=== PATIENT | female | born 1965 | race Caucasian/White ===

== ENCOUNTER 2024-12-26 12:45 | Inpatient (IN) | payer MEDICAID ==
[~2024-12-26] VITALS: Ht 160 cm; Wt 84.7 kg
[~2024-12-26 12:45] MED LIST: APIX5TAB3 PO; FEXO-404 PO; FLUO-167 PO; LEVO175T7 PO; LOSA-415 PO; MECL-302 PO; MIRT-87 PO; PANT40TA54 PO; POTA-206 PO
[2024-12-26 16:29] VITALS: BP 174/78; PULSE 93; RESP 18; TEMP 98; O2SAT 99
[2024-12-26] MEDS ORDERED: loperamide 2mg capsule PO PRN (17:10)
[2024-12-26] MEDS ORDERED: mag hydrox/Alum hydrox/simeth 30ml oral suspension PO PRN (17:20)
[2024-12-26 19:00] VITALS: RESP 20; O2SAT 98
[2024-12-26 20:00] VITALS: BP 140/71; PULSE 83; RESP 20; TEMP 97.8; O2SAT 98
[2024-12-26] MEDS ORDERED: MECL-302 PO (21:14)
[2024-12-26] MEDS ORDERED: PANT-47 PO (21:14)
[2024-12-26] MEDS ORDERED: FLUO-167 PO (21:14)
[2024-12-26] MEDS ORDERED: MIRT-142 PO (21:14)
[2024-12-26] MEDS ORDERED: APIX5TAB3 PO (21:14)
[2024-12-27 07:30] VITALS: BP 128/81; PULSE 97; RESP 16; TEMP 98.6; O2SAT 97
[2024-12-27] MEDS: pantoprazole 40mg Tablet.DR PO SCH (07:31)
[2024-12-27] MEDS: levoTHYROXINE 175mcg tablet PO SCH (07:34)
[2024-12-27 08:11] LABS: CHOL/HDL RATIO 4.5 (0.00-4.99); LDL CHOLESTEROL 111 MG/DL (50-100)
--- NOTE | 2024-12-27 08:15 | ELECTROCARDIOGRAPH REPORT ---
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 BÁRBARA Saavedra Measurements Intervals Sprague Rate: 95 P: 35 WY: 114 QRS: 66 QRSD: 92 T: 75 QT: 381 QTc: 479 Interpretive Statements Sinus rhythm Borderline short W[place] interval Nonspecific T abnormalities, lateral leads Electronically Signed On 12-27-2024 17:44:[address] BÁRBARA Saavedra Please click the below link to view image of tracing.
--- NOTE | 2024-12-27 12:04 | HISTORY AND PHYSICAL ---
History of Present Illness Primary Medical Doctor: Dr. Quintero History of Present Illness Admission date: 02/26/24 Length of stay: 1 day Status: VOL HPI: Per consultation by this provider on 12/17/24: Admitted to psychiatric unit on 12/20/24 after being hospitalized for evaluation of vertigo and hypokalemia. Full medical work up completed to rule out BPPV, posterior cerebral circulation stroke, Meniere's disease, vestibular schwannoma. for Consulted requested in the context that's psychiatric symptoms, including depression is a contributing factor to inability to eat failure to thrive, 40 pound weight loss in the past few months. Her brother reported changing behavior behaviors, including more irritable, compared to normal in the past few months. Per Brother: Brother thinks she is having nervous breakdown to "protect herself from what's going on". Per brother her thoughts have been scattered, and she is distracted easily, brother reports she has been very preoccupied with worries. Most days her brother would call and talk to her since end of August- september she wouldn't hve eaten at all during the day. Per brother she has no history of confusion, arguing, anxiety. Reports she will purposefully stay awake and get about 4 hours a day, because she likes to stay up late. States this has been her pattern "for as long as I can remember". Her baseline personality is trouble completing tasks because she will obsess about, "everything will take a long time". She has dread, guilt, anxiety, will be emotionally stuck- about not being able to tithe with the loss of her job. Her cousin came yesterday 12/16/24 and talked to her for over an hour about this issue. Brother states she was scared to drive to the grocery store, afraid to drive. Brother states she spent over an hour cleaning a taylor. Per patient: Patient shares she became more upset when her hospitalist was asking her questions, developed left sided rib and chest pain, she shares that her decision making is "I don't know". She relates this changed when she started "falling backwards" at her home, and after that she reflects she was having trouble with her balance, she had to be careful about bending over because it would "do something to my head". Notices the most issues when she was lay down flat in the bed- states it would feel like her head was moving inside. States she was at her current work for almost 19 years and then she was fired on September 18- in the context of "poor job performance" although when she was let go the community association manager told her she had a bad review. Then her mother was hospitalized (is age 83), states this was very stressful she has been a main caregiver for her mother. She has lived with her parents her whole life. Her shift in her ability to function occurred after her mother was hospitalized. She states she ahs been worried about "Everything" "no job, filling out une mployment paperwork". Appetite decreased since she lost her job and her mother was hospitalized. She states she thinks she was ok when she was able to tithe- (states she is very mormonism, raised in the zoroastrianism), states she became financially strained with the loss of her job, her brother provided some financial support - because they cant afford property tax. She is upset because there was money and she didn't pay the tithe0 would she identifies as "sin" and being a thief. She states that "everything just fell apart all at once". Endorses she has lost confidence. Significant fear that if she didn't wake up she would be in [place]. Alert and Oriented X4, appropriate memory recall, attention intact States at home she would spend hours stating "I don't know what to do" unable to take action, and her mother would respond Admitted to psychiatric unit from 12/20- for functional neurologic disorder and somatic symptom disorder, transferred back to medical unit Psychiatric History: Age of initial treatment: no hx of mental health Outpatient: no hx Inpatient: no hx Historical Diagnoses (w/year): none Hx of suicide attempts: denies, denies hx of sucidie Hx of self-harm: denies Hx of violence: denies Legal hx: denies Historical Psych Medications: denies Substances use history: Utox positive for benzodiazepines (was administered valium in the emergency department) no hx of substance use Social history: Lost her job at [employer] at end of August and since has been feeling sad, has had a sudden decline in PO intake, including food and water. Brother is concerned that she has become mentally shut down. For the reports concerns for new behaviors including becoming argumentative, uncooperative and losing her decision-making capacity. Anglican, "I've been raised in zoroastrianism my whole life". Today on Assessment: Complaining about being independent but is completing tasks Psychiatric Medications: Fluoxetine 20 mg po qd Mirtazapine 15 mg po qhs Side Effects: Denies No evidence of TD, EPS AIMs: 0 Review of Psychiatric Symptoms: Mood: when asked how she is feeling she stated, "all of this here is scary" Suicide/self-harm: denies Sleep: when asked how she slept last night she replied, "I know I went to bed early and I am always afraid to lay down after I take a drink" poor sleep Appetite: poor - at 20% of her breakfast, is attempting to eat and drink three meals a day Energy: poor Anxiety: anxiety high Irritability: endorses Homicidal/Anger: denies Hallucinations/Paranoia: denies Trauma symptoms: denies Symptoms related to substance withdrawal: denies Mental Status Evaluation General Appearance: hospital scrubs, short florentino hair, glasses, malodorous Eye contact: intermittent Demeanor: childlike anxious Orientation: to person, place, time, situation Speech: stuttering, hesitant Psychomotor Activity: within normal range Abnormal Body Movements: none observed Mood: uneasy Affect: constricted Suicidality: denies suicidal ideation Homicidally: denies Thought content: consistent with social norms Thought process: circumstantial Thought perceptions: no perceptual disorder noted Memory: appears intact Attention: appear attentive Insight: fair Judgment: fair - Current Medical Problems: r/o encephalopathy Dizziness/Near syncope- etiology unclear MRI normal no evidence of acute intracranial abnormality stroke ruled out EEG results 12/16/23: excess beta in otherwise normal background- nonspecific finding, but maybe seen in the setting of benzodiazepine or barbituate use 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 Hypothyroidism- taking levothyroxine Trouble hearing bilaterally DVT- 12/23-12/26 (treated on medical floor- on elequis) Cardiac HX: hypertension, LD elevated TBI Hx: 1982 - reports there have been no long lasting effects Seizure Hx: denies CHRISTINA Hx: denies Diagnoses Adjustment disorder with mixed anxiety and depressed mood Panic attacks Functional Neurological Disorder acute (met criteria for less than 6 months) Somatic symptom disorder (provisional, met criteria for less than 6 months) r/o dependent personality disorder Assessment: Transferring back from medical floor after treatment for DVTConstance Toney is a 59 year old female who presents for further evaluation and treatment of for adjustment disorder with mixed anxiety and depressed mood, panic attacks, functional neurologic disorder acute, somatic symptom disorder (provisional). She presents in state of mental decompensation in the context of psychosocial stressors including losing her job, her mother becoming hospitalized, financial stress, conflict with being able to enact her mormonism beliefs. She is no longer able to care for herself, including feed herself has lost up to 40 pounds since onset of stressors end of August/beginning of September 2024. She has no psychiatric history prior to August 2024. Symptoms appear to directly correlate in their onset with psychosocial stressors. Anxiety has become significantly heightened, which appears to be the hardwick contributing factor to her inability to function at her normal baseline. Her sleep has been chronically poor but has since worsened. She was admitted to the hospital medical for dizziness/concerns for syncope on. There appears to be contributing organic medical causes at this time, the degree of which these are contributing to her inability to care for herself and psychiatric symptoms are unclear. She continues to meet criteria for functional neurologic disorder as well as provisionally for somatic symptom disorder as the majority of her thought content, anxiety is directed towards the distress around her somatic symptoms. Continues to be acutely anxious, overwhelmed easily, rigid thought process overfocused on somatic concerns, will repeat the same concerns Safety risk: low risk of imminent self-harm, low risk of externalized violent behaviors Treatment Plan: Will continue mirtazapine to address, anxiety, depressive symptoms, sleep, and stimulate appetite. Will start aripiprazole to further address the severity of her rigid thought process, mood, anxiety. Will start lorazepam to manage short term acute anxiety which inhibits her capacity to complete basic self care and decision making. Safety risk: low risk of imminent self-harm, low risk of externalized violent behaviors Treatment Plan: Start lorazepam 0.5 mg po TID Start aripiprazole 5 mg po qd Continue mirtazapine 30 mg po qhs for anxiety/sleep/depression and stimulate appetite. Continue Q15 min checks Continue Groups/Milieu Engagement Spent approximately 60 minutes reviewing records and test results, assessing and treatment planning, completing care coordination and documenting the encounter. Discussed risks, including possible adverse effects, and benefits of treatment recommendations including no treatment. Voice recognition software may have been used to dictate this note. There may be errors due to use of such software. Reporting of serious errors is appreciated. Allergies: Coded Allergies: amoxicillin (Verified Allergy, Unknown, 12/13/24) clavulanic acid (Verified Allergy, Unknown, 12/13/24) erythromycin base (Verified Allergy, Unknown, 12/13/24) Past Surgical History Past Surgical History: no surgical history Past Family History Patient History: CVA FH: cardiovascular disease MOTHER FH: heart disease Maternal grandmother FH: hypertension MOTHER FH: mental illness FATHER, Paternal grandmother FH: stroke FATHER, Past Social History Drug Use: None Lives with: Spouse Lives In: Home Assessment/Plan Problems/Diagnosis: (1) Functional neurological symptom disorder with mixed symptoms CODING VISIT-PSYCHIATRY Date of Service: Dec 27, 2024 Billing Provider: RACQUEL PERRY DNP Psych Common Visit Codes: [id number] DIAG EVAL W/MED SRVCS RACQUEL PERRY DNP Dec 27, 2024 12:04
--- NOTE | 2024-12-27 14:14 | HISTORY AND PHYSICAL ---
History & Physical Providers to ~ History of Present Illness Reason for Admit\Complaint: Depression History of Present Illness 59 years old female admitted at [facility] on 12/20/2024 for major depression and anxiety and grave disability. Patient was placed in 1799. She was noted to have a swelling of her left leg and was found to have an occlusive DVT. Patient was transferred to the medical side, treated with IV heparin and switch to oral anticoagulants and transferred back to [facility] for ongoing treatment. Patient has no acute medical issues. Continues to have leg swelling. Denies having any shortness of breath. Denies having any recent fever chills nausea vomiting abdominal or chest pain. Allergies: Coded Allergies: amoxicillin (Verified Allergy, Unknown, 12/13/24) clavulanic acid (Verified Allergy, Unknown, 12/13/24) erythromycin base (Verified Allergy, Unknown, 12/13/24) Home Medications Home Medications Active Reported PROTONIX tablet (Pantoprazole Sodium) 40 Mg Tablet.dr 1 Tab PO DAILY Meclizine HCl 25 Mg Tablet 1 Tab PO Q8H PRN Mandi* (Fexofenadine HCl) 180 Mg Tablet 1 Tab PO DAILY Cozaar* (Losartan Potassium) 25 Mg Tablet 2 Tab PO DAILY Levothyroxine Sodium 175 Mcg Tablet 1 Tab PO DAILY Eliquis (Apixaban) 5 Mg Tablet 1 Tab PO Q12H Eliquis (Apixaban) 5 Mg Tablet 2 Tab PO Q12H Past Medical History Past Medical History Hypertension, hypothyroidism, hypokalemia, traumatic brain injury 44 years ago, GERD Past Surgical History Surgical History Comment Tonsillectomy, surgery for endometriosis, abdominal surgery Family History Family History: Family history was reviewed; no changes noted. Past Social History Social History Comment Does not smoke drink or do any drugs Health Maintenance Health Maintenance Unknown ROS ROS All other systems are reviewed and are negative except as mentioned in HPI Exam Vitals: Vital Signs Date Time Temp Pulse Resp B/P (MAP) Pulse Ox O2 Delivery O2 Flow Rate FiO2 12/27/24 07:31 97 12/27/24 07:30 16 97 Room Air 12/27/24 07:30 98.6 128/81 (97) General: Awake cooperative in no acute distress HEENT: Normocephalic atraumatic pupils round reactive to light and accommodation, extraocular movements intact, sclera anicteric, conjunctiva pinkish, moist oral mucosa, no rash or ulcers. Neck: Supple, no JVD, trachea midline, no lymphadenopathy. Chest: Clear to auscultation, no wheezes crackles or rhonchi. Cardiovascular: Regular rate rhythm, no murmur gallop or rub. Abdomen: Soft nontender, no organomegaly. Extremities: Swelling of the left leg extending to the left thigh noted no cyanosis or clubbing Central Nervous System: Nonfocal. Moves all four extremities. Musculoskeletal: No joint swelling or deformities Skin: No rash or ulcers Additional Plan 59 years old female with a history of major depression, transferred back to [facility] after being treated for left leg occlusive DVT # left leg occlusive DVT: Continue Eliquis #hypothyroidism: Continue levothyroxine #hypertension: Continue Cozaar #GERD: Continue pantoprazole #depression: Continue treat per psych recommendations. I will sign off. Hospitalist team will continue to follow the patient as per policy/protocol. Please contact the hospitalist team for any change in patient's medical condition. Date of Service: Dec 27, 2024 Billing Provider: CAROLINE BARGER MD Common Visit Codes: [id number] INP/OBS CARE (MOD) CAROLINE BARGER MD Dec 27, 2024 14:14
[2024-12-27 19:00] VITALS: RESP 18; O2SAT 99
[2024-12-27 20:00] VITALS: BP 138/60; PULSE 81; RESP 18; TEMP 98.6; O2SAT 99
[2024-12-27 21:40] VITALS: BP 125/68; PULSE 85; RESP 16; TEMP 99.5; O2SAT 94
[2024-12-28 07:30] VITALS: BP 134/67; PULSE 88; RESP 16; TEMP 98; O2SAT 96
--- NOTE | 2024-12-28 16:46 | PROGRESS NOTE ---
Progress Note Dictate Providers to CC ~ Progress Note: Admission date: 02/26/24 Length of stay: 2 days Status: VOL HPI: Per consultation by this provider on 12/17/24: Admitted to psychiatric unit on 12/20/24 after being hospitalized for evaluation of vertigo and hypokalemia. Full medical work up completed to rule out BPPV, p osterior cerebral circulation stroke, Meniere's disease, vestibular schwannoma. for Consulted requested in the context that's psychiatric symptoms, including depression is a contributing factor to inability to eat failure to thrive, 40 pound weight loss in the past few months. Her brother reported changing behavior behaviors, including more irritable, compared to normal in the past few months. Per Brother: Brother thinks she is having nervous breakdown to "protect herself from what's going on". Per brother her thoughts have been scattered, and she is distracted easily, brother reports she has been very preoccupied with worries. Most days her brother would call and talk to her since end of August- september she wouldn't hve eaten at all during the day. Per brother she has no history of confusion, arguing, anxiety. Reports she will purposefully stay awake and get about 4 hours a day, because she likes to stay up late. States this has been her pattern "for as long as I can remember". Her baseline personality is trouble completing tasks because she will obsess about, "everything will take a long time". She has dread, guilt, anxiety, will be emotionally stuck- about not being able to tithe with the loss of her job. Her cousin came yesterday 12/16/24 and talked to her for over an hour about this issue. Brother states she was scared to drive to the grocery store, afraid to drive. Brother states she spent over an hour cleaning a taylor. Per patient: Patient shares she became more upset when her hospitalist was asking her q uestions, developed left sided rib and chest pain, she shares that her decision making is "I don't know". She relates this changed when she started "falling backwards" at her home, and after that she reflects she was having trouble with her balance, she had to be careful about bending over because it would "do something to my head". Notices the most issues when she was lay down flat in the bed- states it would feel like her head was moving inside. States she was at her current work for almost 19 years and then she was fired on September 18- in the context of "poor job performance" although when she was let go the security services manager told her she had a bad review. Then her mother was hospitalized (is age 83), states this was very stressful she has been a main caregiver for her mother. She has lived with her parents her whole life. Her shift in her ability to function occurred after her mother was hospitalized. She states she ahs been worried about "Everything" "no job, filling out unemployment paperwork". Appetite decreased since she lost her job and her mother was hospitalized. She states she thinks she was ok when she was able to tithe- (states she is very jew, raised in the taoism), states she became financially strained with the loss of her job, her brother provided some financial support - because they cant afford property tax. She is upset because there was money and she didn't pay the tithe0 would she identifies as "sin" and being a thief. She states that "everything just fell apart all at once". Endorses she has lost confidence. Significant fear that if she didn't wake up she would be in Hell. Alert and Oriented X4, appropriate memory recall, attention intact States at home she would spend hours stating "I don't know what to do" unable to take action, and her mother would respond Admitted to psychiatric unit from 12/20- for functional neurologic disorder and somatic symptom disorder, transferred back to medical unit Psychiatric History: Age of initial treatment: no hx of mental health Outpatient: no hx Inpatient: no hx Historical Diagnoses (w/year): none Hx of suicide attempts: denies, denies hx of sucidie Hx of self-harm: denies Hx of violence: denies Legal hx: denies Historical Psych Medications: denies Substances use history: Utox positive for benzodiazepines (was administered valium in the emergency department) no hx of substance use Social history: Lost her job at [employer] at end of August and since has been feeling sad, has had a sudden decline in PO intake, including food and water. Brother is concerned that she has become mentally shut down. For the reports concerns for new behaviors including becoming argumentative, uncooperative and losing her decision-making capacity. Yazidi, "I've been raised in taoism my whole life". Today on Assessment: Concerns for being cold, disrupted her sleep. States she wasn't thinking about her pain. Per nursing staff no concerns of sedation (poor sleep r/t roommate's psychotic symptoms). Psychiatric Medications: Aripiprazole Mirtazapine Lorazepam Side Effects: - one episode of feeling light headed and dizzy, No evidence of TD, EPS AIMs: 0 Review of Psychiatric Symptoms: Mood: when asked how she is feeling she stated, "all of this here is scary" Suicide/self-harm: denies Sleep: when asked how she slept last night she replied, "I know I went to bed early and I am always afraid to lay down after I take a drink" poor sleep Appetite: poor - at 20% of her breakfast, drank carton of milk, endorses some appetite. Concerned about her heart burn. Energy: fatigued today, spending a lot of time sleep Anxiety: "I was closing my eyes I don't think I was worrying" Irritability: endorses Homicidal/Anger: denies Hallucinations/Paranoia: denies Trauma symptoms: denies Symptoms related to substance withdrawal: denies Mental Status Evaluation General Appearance: hospital scrubs, short florentino hair, glasses, malodorous Eye contact: intermittent Demeanor: childlike anxious Orientation: to person, place, time, situation Speech: stuttering, hesitant Psychomotor Activity: within normal range Abnormal Body Movements: none observed Mood: uneasy Affect: constricted Suicidality: denies suicidal ideation Homicidally: denies Thought content: consistent with social norms Thought process: circumstantial Thought perceptions: no perceptual disorder noted Memory: appears intact Attention: appear attentive Insight: fair Judgment: fair - Current Medical Problems: r/o encephalopathy Dizziness/Near syncope- etiology unclear MRI normal no evidence of acute intracranial abnormality stroke ruled out EEG results 12/16/23: excess beta in otherwise normal background- nonspecific finding, but maybe seen in the setting of benzodiazepine or barbituate use 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 Hypothyroidism- taking levothyroxine Trouble hearing bilaterally DVT- 12/23-12/26 (treated on medical floor- on elequis) Cardiac HX: hypertension, LD elevated TBI Hx: 1980 - reports there have been no long lasting effects Seizure Hx: denies CHRISTINA Hx: denies Diagnoses Adjustment disorder with mixed anxiety and depressed mood Panic attacks Functional Neurological Disorder acute (met criteria for less than 6 months) Somatic symptom disorder (provisional, met criteria for less than 6 months) r/o dependent personality disorder Assessment: Transferred back from medical floor after treatment for DVTConstance Toney is a 59 year old female who presents for further evaluation and treatment of for adjustment disorder with mixed anxiety and depressed mood, panic attacks, functional neurologic disorder acute, somatic symptom disorder (provisional). She presents in state of mental decompensation in the context of psychosocial stressors including losing her job, her mother becoming hospitalized, financial stress, conflict with being able to enact her jew beliefs. She is no longer able to care for herself, including feed herself has lost up to 40 pounds since onset of stressors end of August/beginning of September 2024. She has no psychiatric history prior to August 2024. Symptoms appear to directly correlate in their onset with psychosocial stressors. Anxiety has become significantly heightened, which appears to be the hardwick contributing factor to her inability to function at her normal baseline. Her sleep has been chronically poor but has since worsened. She was admitted to the hospital medical for dizziness/concerns for syncope on. There appears to be contributing organic medical causes at this time, the degree of which these are contributing to her inability to care for herself and psychiatric symptoms are unclear. She continues to meet criteria for functional neurologic disorder as well as provisionally for somatic symptom disorder as the majority of her thought content, anxiety is directed towards the distress around her somatic symptoms. 12/28/24: Less anxiety, rigid thought process less focused on somatic concerns, mood remains depressed Safety risk: low risk of imminent self-harm, low risk of externalized violent behaviors Treatment Plan: Will continue mirtazapine to address, anxiety, depressive symptoms, sleep, and stimulate appetite. Will continue aripiprazole to further address the severity of her rigid thought process, mood, anxiety. Will continue lorazepam to manage short term acute anxiety which inhibits her capacity to complete basic self care and decision making. Safety risk: low risk of imminent self-harm, low risk of externalized violent behaviors Treatment Plan: Continue lorazepam 0.5 mg po TID Continue aripiprazole 5 mg po qd Continue mirtazapine 30 mg po qhs for anxiety/sleep/depression and stimulate appetite. Continue Q15 min checks Continue Groups/Milieu Engagement Spent approximately 30 minutes reviewing records and test results, assessing and treatment planning, completing care coordination and documenting the encounter. Discussed risks, including possible adverse effects, and benefits of treatment recommendations including no treatment. Voice recognition software may have been used to dictate this note. There may be errors due to use of such software. Reporting of serious errors is appreciated. Antibiotic Ordered?: No Objective Vitals Vital Signs Date Time Temp Pulse Resp B/P (MAP) Pulse Ox O2 Delivery O2 Flow Rate FiO2 12/28/24 12:59 18 12/28/24 07:30 98.0 88 134/67 (89) 96 Room Air Problem\\Assessment\\Plan Problems/Diagnosis: (1) Functional neurological symptom disorder with mixed symptoms CODING VISIT-PSYCHIATRY Date of Service: Dec 28, 2024 Billing Provider: RACQUEL PERRY DNP Psych Common Visit Codes: [id number] INP/OBS CARE(Mod) RACQUEL PERRY DNP Dec 28, 2024 16:46
[2024-12-28 19:00] VITALS: RESP 18; O2SAT 98
[2024-12-28 20:00] VITALS: BP 131/70; PULSE 97; RESP 18; TEMP 97.9; O2SAT 98
[2024-12-29 07:30] VITALS: BP 163/63; PULSE 89; RESP 16; TEMP 98; O2SAT 94
--- NOTE | 2024-12-29 10:26 | PROGRESS NOTE ---
Daily Progress Note Providers to CC ~ Antibiotic Timeout Antibiotic Ordered?: No Subjective Patient has no new complaints, she is seen resting comfortably. Objective Vital Signs Date Time Temp Pulse Resp B/P (MAP) Pulse Ox O2 Delivery O2 Flow Rate FiO2 12/29/24 07:43 89 12/29/24 07:38 16 12/28/24 20:00 97.9 131/70 (90) 98 Room Air Gen. awake alert oriented asymptomatic HEENT: Normocephalic, atraumatic, extraocular movements are intact, sclera anicteric, conjunctiva pinkish, moist oral mucosa, no rash or ulcers. NECK: Supple, no JVD, trachea midline. CHEST: Clear to auscultation, no wheezes crackles or rhonchi. HEART: Regular rate rhythm, no murmur gallop or rub. ABDOMEN: Soft, nontender, no organomegaly. EXTREMITIES: No cyanosis or clubbing, edema of left lower extremity/calf noted. Improvement edema of the left thigh. Bilateral ankle/foot edema noted. NEURO EXAM: Grossly nonfocal. MUSCULOSKELETAL : No joint swelling or deformities. SKIN: No rash or ulcers noted. Other Results Medications reviewed Problem\Assessment\Plan 59 years old female admitted at [facility] for anxiety and depression as well as panic attacks. # anxiety/depression/panic attacks: Continue treat per psych recommendations. # DVT left leg: Continue Eliquis #hyperlipidemia: Continue atorvastatin # hypertension: Continue losartan #hypothyroidism: Continue levothyroxine # GERD: Continue PPI I will sign off. Please contact the hospitalist team for any change in patient 's medical condition. Hospitalist team will continue to follow the patient as per policy/protocol. Date of Service: Dec 29, 2024 Billing Provider: CAROLINE BARGER MD Common Visit Codes: [id number] INP/OBS CARE(MOD) CAROLINE BARGER MD Dec 29, 2024 10:26
[2024-12-29] MEDS: magnesium hydroxide 30ml (MOM) UD suspension PO PRN (14:44)
--- NOTE | 2024-12-29 14:57 | PROGRESS NOTE ---
Progress Note Dictate Providers to CC ~ Progress Note: Admission date: 02/26/24 Length of stay: 3 days Status: VOL HPI: Per consultation by this provider on 12/17/24: Admitted to psychiatric unit on 12/20/24 after being hospitalized for evaluation of vertigo and hypokalemia. Full medical work up completed to rule out BPPV, p osterior cerebral circulation stroke, Meniere's disease, vestibular schwannoma. for Consulted requested in the context that's psychiatric symptoms, including depression is a contributing factor to inability to eat failure to thrive, 40 pound weight loss in the past few months. Her brother reported changing behavior behaviors, including more irritable, compared to normal in the past few months. Per Brother: Brother thinks she is having nervous breakdown to "protect herself from what's going on". Per brother her thoughts have been scattered, and she is distracted easily, brother reports she has been very preoccupied with worries. Most days her brother would call and talk to her since end of August- september she wouldn't hve eaten at all during the day. Per brother she has no history of confusion, arguing, anxiety. Reports she will purposefully stay awake and get about 4 hours a day, because she likes to stay up late. States this has been her pattern "for as long as I can remember". Her baseline personality is trouble completing tasks because she will obsess about, "everything will take a long time". She has dread, guilt, anxiety, will be emotionally stuck- about not being able to tithe with the loss of her job. Her cousin came yesterday 12/16/24 and talked to her for over an hour about this issue. Brother states she was scared to drive to the grocery store, afraid to drive. Brother states she spent over an hour cleaning a taylor. Per patient: Patient shares she became more upset when her hospitalist was asking her q uestions, developed left sided rib and chest pain, she shares that her decision making is "I don't know". She relates this changed when she started "falling backwards" at her home, and after that she reflects she was having trouble with her balance, she had to be careful about bending over because it would "do something to my head". Notices the most issues when she was lay down flat in the bed- states it would feel like her head was moving inside. States she was at her current work for almost 19 years and then she was fired on September 18- in the context of "poor job performance" although when she was let go the desktop manager told her she had a bad review. Then her mother was hospitalized (is age 83), states this was very stressful she has been a main caregiver for her mother. She has lived with her parents her whole life. Her shift in her ability to function occurred after her mother was hospitalized. She states she ahs been worried about "Everything" "no job, filling out unemployment paperwork". Appetite decreased since she lost her job and her mother was hospitalized. She states she thinks she was ok when she was able to tithe- (states she is very taoism, raised in the holiness), states she became financially strained with the loss of her job, her brother provided some financial support - because they cant afford property tax. She is upset because there was money and she didn't pay the tithe0 would she identifies as "sin" and being a thief. She states that "everything just fell apart all at once". Endorses she has lost confidence. Significant fear that if she didn't wake up she would be in Hell. Alert and Oriented X4, appropriate memory recall, attention intact States at home she would spend hours stating "I don't know what to do" unable to take action, and her mother would respond Admitted to psychiatric unit from 12/20- for functional neurologic disorder and somatic symptom disorder, transferred back to medical unit Psychiatric History: Age of initial treatment: no hx of mental health Outpatient: no hx Inpatient: no hx Historical Diagnoses (w/year): none Hx of suicide attempts: denies, denies hx of sucidie Hx of self-harm: denies Hx of violence: denies Legal hx: denies Historical Psych Medications: denies Substances use history: Utox positive for benzodiazepines (was administered valium in the emergency department) no hx of substance use Social history: Lost her job at [employer] at end of August and since has been feeling sad, has had a sudden decline in PO intake, including food and water. Brother is concerned that she has become mentally shut down. For the reports concerns for new behaviors including becoming argumentative, uncooperative and losing her decision-making capacity. Hinduism, "I've been raised in holiness my whole life". Today on Assessment: Concerns for incontinence, was able to shower, is fearful about being alone in the bank operations officer. Biggest concerns: going to the bathroom, trouble walking- fear of falling, financial fear Is worried that the medication will make her more forgetful. Psychiatric Medications: Aripiprazole Mirtazapine Lorazepam Side Effects: denies No evidence of TD, EPS AIMs: 0 Review of Psychiatric Symptoms: Mood: anxious, endorses helplessness. Suicide/self-harm: denies Sleep: states she slept better than previous nights, woke up feeling really anxious- concerned about going to the bathroom- Appetite: poor - at 20% "a little bit of egg, a little nibble of cantaloupe" "the food smells and all of the meat is dry" Energy: "I'm tired, everything is so hard" Anxiety: "I was closing my eyes I don't think I was worrying" Irritability: endorses Homicidal/Anger: denies Hallucinations/Paranoia: denies Trauma symptoms: denies Symptoms related to substance withdrawal: denies Mental Status Evaluation General Appearance: hospital scrubs, short florentino hair, glasses, malodorous Eye contact: intermittent Demeanor: childlike anxious Orientation: to person, place, time, situation Speech: stuttering, hesitant Psychomotor Activity: within normal range Abnormal Body Movements: none observed Mood: uneasy Affect: constricted Suicidality: denies suicidal ideation Homicidally: denies Thought content: consistent with social norms Thought process: circumstantial Thought perceptions: no perceptual disorder noted Memory: appears intact Attention: appear attentive Insight: fair Judgment: fair - Current Medical Problems: r/o encephalopathy Dizziness/Near syncope- etiology unclear MRI normal no evidence of acute intracranial abnormality stroke ruled out EEG results 12/16/23: excess beta in otherwise normal background- nonspecific finding, but maybe seen in the setting of benzodiazepine or barbituate use 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 Hypothyroidism- taking levothyroxine Trouble hearing bilaterally DVT- 12/23-12/26 (treated on medical floor- on elequis) Cardiac HX: hypertension, LD elevated TBI Hx: 1979 - reports there have been no long lasting effects Seizure Hx: denies CHRISTINA Hx: denies Diagnoses Adjustment disorder with mixed anxiety and depressed mood Panic attacks Functional Neurological Disorder acute (met criteria for less than 6 months) Somatic symptom disorder (provisional, met criteria for less than 6 months) r/o dependent personality disorder Assessment: Transferred back from medical floor after treatment for DVTConstance Toney is a 59 year old female who presents for further evaluation and treatment of for adjustment disorder with mixed anxiety and depressed mood, panic attacks, functional neurologic disorder acute, somatic symptom disorder (provisional). She presents in state of mental decompensation in the context of psychosocial stressors including losing her job, her mother becoming hospitalized, financial stress, conflict with being able to enact her taoism beliefs. She is no longer able to care for herself, including feed herself has lost up to 40 pounds since onset of stressors end of August/beginning of September 2024. She has no psychiatric history prior to August 2024. Symptoms appear to directly correlate in their onset with psychosocial stressors. Anxiety has become significantly heightened, which appears to be the hardwick contributing factor to her inability to function at her normal baseline. Her sleep has been chronically poor but has since worsened. She was admitted to [facility] for dizziness/concerns for syncope on. There appears to be contributing organic medical causes at this time, the degree of which these are contributing to her inability to care for herself and psychiatric symptoms are unclear. She continues to meet criteria for functional neurologic disorder as well as provisionally for somatic symptom disorder as the majority of her thought content, anxiety is directed towards the distress around her somatic symptoms. 12/29/24: Less anxiety, rigid thought process still focused on basic somatic concerns, mood remains depressed Safety risk: low risk of imminent self-harm, low risk of externalized violent behaviors Treatment Plan: Will continue mirtazapine to address, anxiety, depressive symptoms, sleep, and stimulate appetite. Will continue aripiprazole to further address the severity of her rigid thought process, mood, anxiety. Will continue lorazepam to manage short term acute anxiety which inhibits her capacity to complete basic self care and decision making. Safety risk: low risk of imminent self-harm, low risk of externalized violent behaviors Treatment Plan: Continue lorazepam 0.5 mg po BID am and afternoon- (will discontinue HS dose) Continue aripiprazole 5 mg po qd Continue mirtazapine 30 mg po qhs for anxiety/sleep/depression and stimulate appetite. Continue Q15 min checks Continue Groups/Milieu Engagement Spent approximately 30 minutes reviewing records and test results, assessing and treatment planning, completing care coordination and documenting the encounter. Discussed risks, including possible adverse effects, and benefits of treatment recommendations including no treatment. Voice recognition software may have been used to dictate this note. There may be errors due to use of such software. Reporting of serious errors is appreciated. Antibiotic Ordered?: No Objective Vitals Vital Signs Date Time Temp Pulse Resp B/P (MAP) Pulse Ox O2 Delivery O2 Flow Rate FiO2 12/29/24 14:32 16 12/29/24 07:43 89 12/28/24 20:00 97.9 131/70 (90) 98 Room Air Problem\\Assessment\\Plan Problems/Diagnosis: (1) Functional neurological symptom disorder with mixed symptoms CODING VISIT-PSYCHIATRY Date of Service: Dec 29, 2024 Billing Provider: RACQUEL PERRY DNP Psych Common Visit Codes: [id number] INP/OBS CARE(Mod) RACQUEL PERRY DNP Dec 29, 2024 14:57
[2024-12-29 19:00] VITALS: RESP 16; O2SAT 97
[2024-12-29 20:00] VITALS: BP 123/78; PULSE 99; RESP 16; TEMP 97.8; O2SAT 97
[2024-12-30 07:00] VITALS: RESP 18; O2SAT 95
[2024-12-30 07:03] LABS: MEAN PLATELET VOLUME 7.9 FL (7.4-10.4); RED CELL DISTRIBUTION WIDTH 15.9 % (11.5-14.5)
[2024-12-30 07:45] LABS: CREATININE 0.74 MG/DL (0.40-0.90); TOTAL CARBON DIOXIDE 28.6 MMOL/L (24-32); eCRCL 66 ML/MIN; eGFR 80 ML/MIN
[2024-12-30 08:00] VITALS: BP 136/75; PULSE 97; RESP 18; TEMP 97.6; O2SAT 95
--- NOTE | 2024-12-30 15:25 | PROGRESS NOTE ---
Progress Note Dictate Providers to CC ~ Central Line/PICC still needed: N\\A Antibiotic Ordered?: N/A MRSA Education MRSA Education Provided to pt: N/A Objective Vitals Vital Signs Date Time Temp Pulse Resp B/P (MAP) Pulse Ox O2 Delivery O2 Flow Rate FiO2 12/30/24 14:55 16 12/30/24 08:00 97 12/30/24 08:00 97.6 136/75 (95) 95 Room Air Lab Results: 12/30/24 0643 12/30/24 0643 Psychiatrist's Progress Note Date of Service: Dec 30, 2024 Notes HPI: Per consultation by this provider on 12/17/24: Admitted to psychiatric unit on 12/20/24 after being hospitalized for evaluation of vertigo and hypokalemia. Full medical work up completed to rule out BPPV, posterior cerebral circulation stroke, Meniere's disease, vestibular schwannoma. for Consulted requested in the context that's psychiatric symptoms, including depression is a contributing factor to inability to eat failure to thrive, 40 pound weight loss in the past few months. Her brother reported changing behavior behaviors, including more irritable, compared to normal in the past few months. Per Brother: Brother thinks she is having nervous breakdown to "protect herself from what's going on". Per brother her thoughts have been scattered, and she is distracted easily, brother reports she has been very preoccupied with worries. Most days her brother would call and talk to her since end of August- september she wouldn't hve eaten at all during the day. Per brother she has no history of confusion, arguing, anxiety. Reports she will purposefully stay awake and get about 4 hours a day, because she likes to stay up late. States this has been her pattern "for as long as I can remember". Her baseline personality is trouble completing tasks because she will obsess about, "everything will take a long time". She has dread, guilt, anxiety, will be emotionally stuck- about not being able to tithe with the loss of her job. Her cousin came yesterday 12/16/24 and talked to her for over an hour about this issue. Brother states she was scared to drive to the grocery store, afraid to drive. Brother states she spent over an hour cleaning a taylor. Per patient: Patient shares she became more upset when her hospitalist was asking her questions, developed left sided rib and chest pain, she shares that her decision making is "I don't know". She relates this changed when she started "falling backwards" at her home, and after that she reflects she was having trouble with her balance, she had to be careful about bending over because it would "do something to my head". Notices the most issues when she was lay down flat in the bed- states it would feel like her head was moving inside. States she was at her current work for almost 19 years and then she was fired on September 18- in the context of "poor job performance" although when she was let go the import export manager told her she had a bad review. Then her mother was hospitalized (is age 83), states this was very stressful she has been a main caregiver for her mother. She has lived with her parents her whole life. Her shift in her ability to function occurred after her mother was hospitalized. She states she ahs been worried about "Everything" "no job, filling out unemployment paperwork". Appetite decreased since she lost her job and her mother was hospitalized. She states she thinks she was ok when she was able to tithe- (states she is very quaker, raised in the episcopalian), states she became financially strained with the loss of her job, her brother provided some financial support - because they cant afford property tax. She is upset because there was money and she didn't pay the tithe0 would she identifies as "sin" and being a thief. She states that "everything just fell apart all at once". Endorses she has lost confidence. Significant fear that if she didn't wake up she would be in Hell. Alert and Oriented X4, appropriate memory recall, attention intact States at home she would spend hours stating "I don't know what to do" unable to take action, and her mother would respond Assessment: Transferred back from medical floor after treatment for DVTConstance Toney is a 59 year old female who presents for further evaluation and treatment of for adjustment disorder with mixed anxiety and depressed mood, panic attacks, functional neurologic disorder acute, somatic symptom disorder (provisional). She presents in state of mental decompensation in the context of psychosocial stressors including losing her job, her mother becoming hospitalized, financial stress, conflict with being able to enact her quaker beliefs. She is no longer able to care for herself, including feed herself has lost up to 40 pounds since onset of stressors end of August/beginning of September 2024. She has no psychiatric history prior to August 2024. Symptoms appear to directly correlate in their onset with psychosocial stressors. Anxiety has become significantly heightened, which appears to be the hardwick contributing factor to her inability to function at her normal baseline. Her sleep has been chronically poor but has since worsened. She was admitted to the [facility] medical for dizziness/concerns for syncope on. There appears to be contributing organic medical causes at this time, the degree of which these are contributing to her inability to care for herself and psychiatric symptoms are unclear. She continues to meet criteria for functional neurologic disorder as well as provisionally for somatic symptom disorder as the majority of her thought content, anxiety is directed towards the distress around her somatic symptoms. Psychiatric History: Age of initial treatment: no hx of mental health Outpatient: no hx Inpatient: no hx Historical Diagnoses (w/year): none Hx of suicide attempts: denies, denies hx of sucidie Hx of self-harm: denies Hx of violence: denies Legal hx: denies Historical Psych Medications: denies Substances use history: Utox positive for benzodiazepines (was administered valium in the emergency department) no hx of substance use Social history: Lost her job at [employer] at end of August and since has been feeling sad, has had a sudden decline in PO intake, including food and water. Brother is concerned that she has become mentally shut down. For the reports concerns for new behaviors including becoming argumentative, uncooperative and losing her decision-making capacity. Rastafari, "I've been raised in episcopalian my whole life". Psychiatric Medications: Aripiprazole Mirtazapine Lorazepam Side Effects: denies No evidence of TD, EPS AIMs: 0 Today on Assessment: Patient on Wheelchair, had difficulty focusing, states have too much in her mind She denies being anxious and / or Depressed Then states she is anxious and depressed in her narration She has multiple issues that caused her to be anxious for, ranging from her health concerns to her financial issue However she did not have any uncontrolled anxious state or panic today, He denies other psychotic signs and symptoms She denies HI, and SI Mental Status Evaluation General Appearance: hospital scrubs, short florentino hair, glasses, malodorous Eye contact: intermittent Demeanor: childlike anxious Orientation: to person, place, time, situation Speech: stuttering, hesitant Psychomotor Activity: within normal range Abnormal Body Movements: none observed Mood: uneasy Affect: constricted Suicidality: denies suicidal ideation Homicidally: denies Thought content: consistent with social norms Thought process: circumstantial Thought perceptions: no perceptual disorder noted Memory: appears intact Attention: appear attentive Insight: fair Judgment: fair Safety risk: low risk of imminent self-harm, low risk of externalized violent behaviors Treatment Will continue mirtazapine to address, anxiety, depressive symptoms, sleep, and stimulate appetite. Will continue aripiprazole to further address the severity of her rigid thought process, mood, anxiety. Will continue lorazepam to manage short term acute anxiety which inhibits her capacity to complete basic self care and decision making. Safety risk: low risk of imminent self-harm, low risk of externalized violent behaviors Treatment Plan: Continue lorazepam 0.5 mg po BID am and afternoon- (will discontinue HS dose) Continue aripiprazole 5 mg po qd Continue mirtazapine 30 mg po qhs for anxiety/sleep/depression and stimulate appetite. Continue Q15 min checks Continue Groups/Milieu Engagement Spent approximately 30 minutes reviewing records and test results, assessing and treatment planning, completing care coordination and documenting the encounter. Discharge Discharge when stable CODING VISIT-PSYCHIATRY Date of Service: Dec 30, 2024 Billing Provider: JORGE WARD APRN Psych Common Visit Codes: [id number] INP/OBS CARE(Mod) JORGE WARD APRN Dec 30, 2024 15:25
[2024-12-30 19:00] VITALS: RESP 18; O2SAT 98
[2024-12-30 20:00] VITALS: BP 122/71; PULSE 94; RESP 18; TEMP 98.2; O2SAT 98
[2024-12-31 07:00] VITALS: RESP 16; O2SAT 95
[2024-12-31 08:00] VITALS: BP 135/78; PULSE 87; RESP 16; TEMP 97.5; O2SAT 95
--- NOTE | 2024-12-31 17:33 | PROGRESS NOTE ---
Progress Note Dictate Providers to CC ~ Central Line/PICC still needed: N\\A Antibiotic Ordered?: N/A MRSA Education MRSA Education Provided to pt: N/A Objective Vitals Vital Signs Date Time Temp Pulse Resp B/P (MAP) Pulse Ox O2 Delivery O2 Flow Rate FiO2 12/31/24 13:02 18 12/31/24 08:33 87 12/31/24 08:00 97.5 135/78 (97) 95 Room Air Lab Results: 12/30/24 0643 12/30/24 0643 Psychiatrist's Progress Note Date of Service: Dec 31, 2024 Notes HPI: Per consultation by this provider on 12/17/24: Admitted to psychiatric unit on 12/20/24 after being hospitalized for evaluation of vertigo and hypokalemia. Full medical work up completed to rule out BPPV, posterior cerebral circulation stroke, Meniere's disease, vestibular schwannoma. for Consulted requested in the context that's psychiatric symptoms, including depression is a contributing factor to inability to eat failure to thrive, 40 pound weight loss in the past few months. Her brother reported changing behavior behaviors, including more irritable, compared to normal in the past few months. Per Brother: Brother thinks she is having nervous breakdown to "protect herself from what's going on". Per brother her thoughts have been scattered, and she is distracted easily, brother reports she has been very preoccupied with worries. Most days her brother would call and talk to her since end of August- september she wouldn't hve eaten at all during the day. Per brother she has no history of confusion, arguing, anxiety. Reports she will purposefully stay awake and get about 4 hours a day, because she likes to stay up late. States this has been her pattern "for as long as I can remember". Her baseline personality is trouble completing tasks because she will obsess about, "everything will take a long time". She has dread, guilt, anxiety, will be emotionally stuck- about not being able to tithe with the loss of her job. Her cousin came yesterday 12/16/24 and talked to her for over an hour about this issue. Brother states she was scared to drive to the grocery store, afraid to drive. Brother states she spent over an hour cleaning a taylor. Per patient: Patient shares she became more upset when her hospitalist was asking her questions, developed left sided rib and chest pain, she shares that her decision making is "I don't know". She relates this changed when she started "falling backwards" at her home, and after that she reflects she was having trouble with her balance, she had to be careful about bending over because it would "do something to my head". Notices the most issues when she was lay down flat in the bed- states it would feel like her head was moving inside. States she was at her current work for almost 19 years and then she was fired on September 18- in the context of "poor job performance" although when she was let go the sales branch manager told her she had a bad review. Then her mother was hospitalized (is age 83), states this was very stressful she has been a main caregiver for her mother. She has lived with her parents her whole life. Her shift in her ability to function occurred after her mother was hospitalized. She states she ahs been worried about "Everything" "no job, filling out unemployment paperwork". Appetite decreased since she lost her job and her mother was hospitalized. She states she thinks she was ok when she was able to tithe- (states she is very moravian, raised in the episcopal), states she became financially strained with the loss of her job, her brother provided some financial support - because they cant afford property tax. She is upset because there was money and she didn't pay the tithe0 would she identifies as "sin" and being a thief. She states that "everything just fell apart all at once". Endorses she has lost confidence. Significant fear that if she didn't wake up she would be in Hell. Alert and Oriented X4, appropriate memory recall, attention intact States at home she would spend hours stating "I don't know what to do" unable to take action, and her mother would respond Assessment: Transferred back from medical floor after treatment for DVTConstance Toney is a 59 year old female who presents for further evaluation and treatment of for adjustment disorder with mixed anxiety and depressed mood, panic attacks, functional neurologic disorder acute, somatic symptom disorder (provisional). She presents in state of mental decompensation in the context of psychosocial stressors including losing her job, her mother becoming hospitalized, financial stress, conflict with being able to enact her moravian beliefs. She is no longer able to care for herself, including feed herself has lost up to 40 pounds since onset of stressors end of August/beginning of September 2024. She has no psychiatric history prior to August 2024. Symptoms appear to directly correlate in their onset with psychosocial stressors. Anxiety has become significantly heightened, which appears to be the hardwick contributing factor to her inability to function at her normal baseline. Her sleep has been chronically poor but has since worsened. She was admitted to the [facility] for dizziness/concerns for syncope on. There appears to be contributing organic medical causes at this time, the degree of which these are contributing to her inability to care for herself and psychiatric symptoms are unclear. She continues to meet criteria for functional neurologic disorder as well as provisionally for somatic symptom disorder as the majority of her thought content, anxiety is directed towards the distress around her somatic symptoms. Patient interviewed at Provider Room Patient is on a wheelchair Patient denies having anxiety and depression, but states she does have those symptoms later Patient exhibits excessive, uncontrolled, pervasive worries over multiple issues ranging from her health to her financial Patient however has stable and tolerable states of her anxiety throughtout the day The issues she narrated are same as previous day She states she does sleep well, but complains that her appetite is poor Patient is compliant to medications Treatment Treatment Plan: Continue lorazepam 0.5 mg po BID am and afternoon- (will discontinue HS dose) Continue aripiprazole 5 mg po qd Continue mirtazapine 30 mg po qhs for anxiety/sleep/depression and stimulate appetite. Continue Q15 min checks Continue Groups/Milieu Engagement Spent approximately 30 minutes reviewing records and test results, assessing and treatment planning, completing care coordination and documenting the encounter. Discharge Discharge when stable CODING VISIT-PSYCHIATRY Date of Service: Dec 31, 2024 Billing Provider: JORGE WARD APRN Psych Common Visit Codes: [id number] INP/OBS CARE(Mod) JORGE WARD APRN Dec 31, 2024 17:33
[2024-12-31 18:00] VITALS: BP 116/71; PULSE 94; RESP 16; TEMP 98.7; O2SAT 97
--- NOTE | 2024-12-31 18:23 | PROGRESS NOTE- Residence ---
Progress Note - Resident Providers to CC Resident Creating Document: WELLINGTON RÍOS, NICKIE ~ Antibiotic Timeout Antibiotic Ordered?: No Subjective Patient was seen and examined today. Patient was moving around on a wheelchair. Say she is unable to walk due to pain in her lower limbs. No other complaints. No acute overnight events Objective Vital Signs Date Time Temp Pulse Resp B/P (MAP) Pulse Ox O2 Delivery O2 Flow Rate FiO2 12/31/24 13:02 18 12/31/24 08:33 87 12/31/24 08:00 97.5 135/78 (97) 95 Room Air Result Diagram: 12/30/24 0643 12/30/24 0643 Gen. awake alert oriented asymptomatic HEENT: Normocephalic, atraumatic, extraocular movements are intact, sclera anicteric, conjunctiva pinkish, moist oral mucosa, no rash or ulcers. NECK: Supple, no JVD, trachea midline. CHEST: Clear to auscultation, no wheezes crackles or rhonchi. HEART: Regular rate rhythm, no murmur gallop or rub. ABDOMEN: Soft, nontender, no organomegaly. EXTREMITIES: No cyanosis or clubbing, edema of left lower extremity/calf noted. Improvement edema of the left thigh. Bilateral ankle/foot edema noted. NEURO EXAM: Grossly nonfocal. MUSCULOSKELETAL : No joint swelling or deformities. SKIN: No rash or ulcers noted. Plan Plan anxiety/depression/panic attacks: Continue treat per psych recommendations. DVT left leg: Continue Eliquis 5 mg Hyperlipidemia- Continue atorvastatin 20 mg Hypertension- Current blood pressure within the normal range Continue losartan 50 mg Hypothyroidism- Continue levothyroxine 175 mcg GERD- Continue pantoprazole 40 mg daily Wellington Ríos PGY-1 Date of Service: Dec 31, 2024 Billing Provider: RAPHAEL IVEY MD Common Visit Codes: [id number] INP/OBS CARE(MOD) WELLINGTON RÍOS RES Dec 31, 2024 18:23 RAPHAEL IVEY MD Jan 01, 2025 06:23
[2024-12-31 19:00] VITALS: RESP 16; O2SAT 97
[2024-12-31 20:00] VITALS: BP 116/71; PULSE 94; RESP 16; TEMP 98.7; O2SAT 97
[2025-01-01 07:00] VITALS: RESP 16; O2SAT 97
[2025-01-01 07:31] VITALS: BP 138/67; PULSE 89; RESP 16; TEMP 98.1; O2SAT 97
[2025-01-01 19:55] VITALS: RESP 20; O2SAT 97
[2025-01-01 19:56] VITALS: BP 128/66; PULSE 102; RESP 20; TEMP 98.5; O2SAT 97
[2025-01-01] MEDS: docusate sod 100mg capsule PO SCH (20:29)
--- NOTE | 2025-01-01 21:54 | PROGRESS NOTE ---
Progress Note Dictate Providers to CC ~ Progress Note: Admission date: 02/26/24 Length of stay: 6 days Status: VOL HPI: Per consultation by this provider on 12/17/24: Admitted to psychiatric unit on 12/20/24 after being hospitalized for evaluation of vertigo and hypokalemia. Full medical work up completed to rule out BPPV, posterior cerebral circulation stroke, Meniere's disease, vestibular schwannoma. for Consulted requested in the context that's psychiatric symptoms, including depression is a contributing factor to inability to eat failure to thrive, 40 pound weight loss in the past few months. Her brother reported changing behavior behaviors, including more irritable, compared to normal in the past few months. Per Brother: Brother thinks she is having nervous breakdown to "protect herself from what's going on". Per brother her thoughts have been scattered, and she is distracted easily, brother reports she has been very preoccupied with worries. Most days her brother would call and talk to her since end of August- september she wouldn't hve eaten at all during the day. Per brother she has no history of confusion, arguing, anxiety. Reports she will purposefully stay awake and get about 4 hours a day, because she likes to stay up late. States this has been her pattern "for as long as I can remember". Her baseline personality is trouble completing tasks because she will obsess about, "everything will take a long time". She has dread, guilt, anxiety, will be emotionally stuck- about not being able to tithe with the loss of her job. Her cousin came yesterday 12/16/24 and talked to her for over an hour about this issue. Brother states she was scared to drive to the grocery store, afraid to drive. Brother states she spent over an hour cleaning a taylor. Per patient: Patient shares she became more upset when her hospitalist was asking her questions, developed left sided rib and chest pain, she shares that her decision making is "I don't know". She relates this changed when she started "falling backwards" at her home, and after that she reflects she was having trouble with her balance, she had to be careful about bending over because it would "do something to my head". Notices the most issues when she was lay down flat in the bed- states it would feel like her head was moving inside. States she was at her current work for almost 19 years and then she was fired on September 18- in the context of "poor job performance" although when she was let go the grocery store manager told her she had a bad review. Then her mother was hospitalized (is age 83), states this was very stressful she has been a main caregiver for her mother. She has lived with her parents her whole life. Her shift in her ability to function occurred after her mother was hospitalized. She states she ahs been worried about "Everything" "no job, filling out unemployment paperwork". Appetite decreased since she lost her job and her mother was hospitalized. She states she thinks she was ok when she was able to tithe- (states she is very confucianist, raised in the taoist), states she became financially strained with the loss of her job, her brother provided some financial support - because they cant afford property tax. She is upset because there was money and she didn't pay the tithe0 would she identifies as "sin" and being a thief. She states that "everything just fell apart all at once". Endorses she has lost confidence. Significant fear that if she didn't wake up she would be in Hell. Alert and Oriented X4, appropriate memory recall, attention intact States at home she would spend hours stating "I don't know what to do" unable to take action, and her mother would respond Admitted to psychiatric unit from 12/20- for functional neurologic disorder and somatic symptom disorder, transferred back to medical unit Psychiatric History: Age of initial treatment: no hx of mental health Outpatient: no hx Inpatient: no hx Historical Diagnoses (w/year): none Hx of suicide attempts: denies, denies hx of sucidie Hx of self-harm: denies Hx of violence: denies Legal hx: denies Historical Psych Medications: denies Substances use history: Utox positive for benzodiazepines (was administered valium in the emergency department) no hx of substance use Social history: Lost her job at [employer] at end of August and since has been feeling sad, has had a sudden decline in PO intake, including food and water. Brother is concerned that she has become mentally shut down. For the reports concerns for new behaviors including becoming argumentative, uncooperative and losing her decision-making capacity. [place], "I've been raised in taoist my whole life". Today on Assessment: She is walking up all the time up and all the time, is able to get up and walk when asked. Still very preoccupied with somatic symptoms- Still struggling with strength, was able to shower. Ongoing fearfulness about insurance issues. Another hardwick concern is her inability to drive. Psychiatric Medications: Aripiprazole Mirtazapine Lorazepam Side Effects: denies No evidence of TD, EPS AIMs: 0 Review of Psychiatric Symptoms: Mood: anxious, endorses helplessness. Still feels very scared. Suicide/self-harm: denies Sleep: improved sleep Appetite: improved, but is still only 30% on average- fearfulness around eating Energy: less fatigue Anxiety: still significant worry about her future, finances, physical health, driving, (generalized anxiety). Irritability: endorses Homicidal/Anger: denies Hallucinations/Paranoia: denies Trauma symptoms: denies Symptoms related to substance withdrawal: denies Mental Status Evaluation General Appearance: hospital scrubs, short florentino hair, glasses, malodorous Eye contact: intermittent Demeanor: childlike anxious Orientation: to person, place, time, situation Speech: stuttering, hesitant Psychomotor Activity: within normal range Abnormal Body Movements: none observed Mood: uneasy Affect: constricted Suicidality: denies suicidal ideation Homicidally: denies Thought content: consistent with social norms Thought process: circumstantial Thought perceptions: no perceptual disorder noted Memory: appears intact Attention: appear attentive Insight: fair Judgment: fair - Current Medical Problems: r/o encephalopathy Dizziness/Near syncope- etiology unclear MRI normal no evidence of acute intracranial abnormality stroke ruled out EEG results 12/16/23: excess beta in otherwise normal background- nonspecific finding, but maybe seen in the setting of benzodiazepine or barbituate use 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 Hypothyroidism- taking levothyroxine Trouble hearing bilaterally DVT- 12/23-12/26 (treated on medical floor- on Eliquis) Cardiac HX: hypertension, LD elevated TBI Hx: 1979 - reports there have been no long lasting effects Seizure Hx: denies CHRISTINA Hx: denies Diagnoses Adjustment disorder with mixed anxiety and depressed mood Panic attacks Functional Neurological Disorder acute (met criteria for less than 6 months) Somatic symptom disorder (provisional, met criteria for less than 6 months) r/o dependent personality disorder Assessment: Transferred back from medical floor after treatment for DVTConstance Toney is a 59 year old female who presents for further evaluation and treatment of for adjustment disorder with mixed anxiety and depressed mood, panic attacks, functional neurologic disorder acute, somatic symptom disorder (provisional). She presents in state of mental decompensation in the context of psychosocial stressors including losing her job, her mother becoming hospitalized, financial stress, conflict with being able to enact her confucianist beliefs. She is no longer able to care for herself, including feed herself has lost up to 40 pounds since onset of stressors end of August/beginning of September 2024. She has no psychiatric history prior to August 2024. Symptoms appear to directly correlate in their onset with psychosocial stressors. Anxiety has become significantly heightened, which appears to be the hardwick contributing factor to her inability to function at her normal baseline. Her sleep has been chronically poor but has since worsened. She was admitted to the hospital medical for dizziness/concerns for syncope on. There appears to be contributing organic medical causes at this time, the degree of which these are contributing to her inability to care for herself and psychiatric symptoms are unclear. She continues to meet criteria for functional neurologic disorder as well as provisionally for somatic symptom disorder as the majority of her thought content, anxiety is directed towards the distress around her somatic symptoms. 01/01/25: Less anxiety, rigid thought process still focused on basic somatic concerns, mood remains depressed Safety risk: low risk of imminent self-harm, low risk of externalized violent behaviors Treatment Plan: Will continue mirtazapine to address, anxiety, depressive symptoms, sleep, and stimulate appetite. Will continue aripiprazole to further address the severity of her rigid thought process, mood, anxiety. Will continue slow taper off lorazepam, prescribed to manage short term acute anxiety which inhibits her capacity to complete basic self care and decision making. Safety risk: low risk of imminent self-harm, low risk of externalized violent behaviors Treatment Plan: Start stool softener for consistent BM Decrease lorazepam 0.5 mg po BID to Qafternoon- Continue aripiprazole 5 mg po qd Continue mirtazapine 30 mg po qhs for anxiety/sleep/depression and stimulate appetite. Follow up with PT- Continue Q15 min checks Continue Groups/Milieu Engagement Spent approximately 30 minutes reviewing records and test results, assessing and treatment planning, completing care coordination and documenting the encounter. Discussed risks, including possible adverse effects, and benefits of treatment recommendations including no treatment. Voice recognition software may have been used to dictate this note. There may be errors due to use of such software. Reporting of serious errors is appreciated. Antibiotic Ordered?: No Objective Vitals Vital Signs Date Time Temp Pulse Resp B/P (MAP) Pulse Ox O2 Delivery O2 Flow Rate FiO2 01/01/25 19:56 98.5 102 20 128/66 (86) 97 Room Air Lab Results: 12/30/24 0643 12/30/24 0643 Problem\\Assessment\\Plan Problems/Diagnosis: (1) Functional neurological symptom disorder with mixed symptoms CODING VISIT-PSYCHIATRY Date of Service: Jan 01, 2025 Billing Provider: RACQUEL PERRY DNP Psych Common Visit Codes: [id number] INP/OBS CARE(Mod) RACQUEL PERRY DNP Jan 01, 2025 21:54
[2025-01-02 07:00] VITALS: RESP 16; O2SAT 99
[2025-01-02 08:51] VITALS: BP 141/71; PULSE 86; RESP 16; TEMP 98.3; O2SAT 97
--- NOTE | 2025-01-02 17:38 | PROGRESS NOTE ---
Progress Note Dictate Providers to CC ~ Progress Note: Admission date: 02/26/24 Length of stay: 7 days Status: VOL HPI: Per consultation by this provider on 12/17/24: Admitted to psychiatric unit on 12/20/24 after being hospitalized for evaluation of vertigo and hypokalemia. Full medical work up completed to rule out BPPV, posterior cerebral circulation stroke, Meniere's disease, vestibular schwannoma. for Consulted requested in the context that's psychiatric symptoms, including depression is a contributing factor to inability to eat failure to thrive, 40 pound weight loss in the past few months. Her brother reported changing behavior behaviors, including more irritable, compared to normal in the past few months. Per Brother: Brother thinks she is having nervous breakdown to "protect herself from what's going on". Per brother her thoughts have been scattered, and she is distracted easily, brother reports she has been very preoccupied with worries. Most days her brother would call and talk to her since end of August- september she wouldn't hve eaten at all during the day. Per brother she has no history of confusion, arguing, anxiety. Reports she will purposefully stay awake and get about 4 hours a day, because she likes to stay up late. States this has been her pattern "for as long as I can remember". Her baseline personality is trouble completing tasks because she will obsess about, "everything will take a long time". She has dread, guilt, anxiety, will be emotionally stuck- about not being able to tithe with the loss of her job. Her cousin came yesterday 12/16/24 and talked to her for over an hour about this issue. Brother states she was scared to drive to the grocery store, afraid to drive. Brother states she spent over an hour cleaning a taylor. Per patient: Patient shares she became more upset when her hospitalist was asking her questions, developed left sided rib and chest pain, she shares that her decision making is "I don't know". She relates this changed when she started "falling backwards" at her home, and after that she reflects she was having trouble with her balance, she had to be careful about bending over because it would "do something to my head". Notices the most issues when she was lay down flat in the bed- states it would feel like her head was moving inside. States she was at her current work for almost 19 years and then she was fired on September 18- in the context of "poor job performance" although when she was let go the exercise manager told her she had a bad review. Then her mother was hospitalized (is age 83), states this was very stressful she has been a main caregiver for her mother. She has lived with her parents her whole life. Her shift in her ability to function occurred after her mother was hospitalized. She states she ahs been worried about "Everything" "no job, filling out unemployment paperwork". Appetite decreased since she lost her job and her mother was hospitalized. She states she thinks she was ok when she was able to tithe- (states she is very presybeterian, raised in the qu[place]), states she became financially strained with the loss of her job, her brother provided some financial support - because they cant afford property tax. She is upset because there was money and she didn't pay the tithe0 would she identifies as "sin" and being a thief. She states that "everything just fell apart all at once". Endorses she has lost confidence. Significant fear that if she didn't wake up she would be in Hell. Alert and Oriented X4, appropriate memory recall, attention intact States at home she would spend hours stating "I don't know what to do" unable to take action, and her mother would respond Admitted to psychiatric unit from 12/20- for functional neurologic disorder and somatic symptom disorder, transferred back to medical unit Psychiatric History: Age of initial treatment: no hx of mental health Outpatient: no hx Inpatient: no hx Historical Diagnoses (w/year): none Hx of suicide attempts: denies, denies hx of sucidie Hx of self-harm: denies Hx of violence: denies Legal hx: denies Historical Psych Medications: denies Substances use history: Utox positive for benzodiazepines (was administered valium in the emergency department) no hx of substance use Social history: Lost her job at [employer] at end of August and since has been feeling sad, has had a sudden decline in PO intake, including food and water. Brother is concerned that she has become mentally shut down. For the reports concerns for new behaviors including becoming argumentative, uncooperative and losing her decision-making capacity. [place], "I've been raised in quaker my whole life". Today on Assessment: She is walking up all the time up- been walking up and down the bar in the hallway. Concerned about inconsistent bowl movement. "I am very concerned about my abilities" (overall is having a lot less difficulty with feeling dizzy). Psychiatric Medications: Aripiprazole Mirtazapine Lorazepam Side Effects: denies No evidence of TD, EPS AIMs: 0 Review of Psychiatric Symptoms: Mood: anxious, endorses helplessness. Still feels very scared. Suicide/self-harm: denies Sleep: improved sleep Appetite: improved, but is still only 30% on average- fearfulness around eating Energy: tired r/t walking up and down the halls Anxiety: still significant worry about her future, finances, physical health, driving, (generalized anxiety). Irritability: endorses Homicidal/Anger: denies Hallucinations/Paranoia: denies Trauma symptoms: denies Symptoms related to substance withdrawal: denies Mental Status Evaluation General Appearance: hospital scrubs, short florentino hair, glasses, malodorous Eye contact: intermittent Demeanor: childlike anxious Orientation: to person, place, time, situation Speech: stuttering, hesitant Psychomotor Activity: within normal range Abnormal Body Movements: none observed Mood: uneasy Affect: constricted Suicidality: denies suicidal ideation Homicidally: denies Thought content: consistent with social norms Thought process: circumstantial Thought perceptions: no perceptual disorder noted Memory: appears intact Attention: appear attentive Insight: fair Judgment: fair - Current Medical Problems: r/o encephalopathy Dizziness/Near syncope- etiology unclear MRI normal no evidence of acute intracranial abnormality stroke ruled out EEG results 12/16/23: excess beta in otherwise normal background- nonspecific finding, but maybe seen in the setting of benzodiazepine or barbituate use 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 Hypothyroidism- taking levothyroxine Trouble hearing bilaterally DVT- 12/23-12/26 (treated on medical floor- on Eliquis) Cardiac HX: hypertension, LD elevated TBI Hx: 1981 - reports there have been no long lasting effects Seizure Hx: denies CHRISTINA Hx: denies Diagnoses Adjustment disorder with mixed anxiety and depressed mood Panic attacks Functional Neurological Disorder acute (met criteria for less than 6 months) Somatic symptom disorder (provisional, met criteria for less than 6 months) r/o dependent personality disorder Assessment: Transferred back from medical floor after treatment for DVTConstance Toney is a 59 year old female who presents for further evaluation and treatment of for adjustment disorder with mixed anxiety and depressed mood, panic attacks, functional neurologic disorder acute, somatic symptom disorder (provisional). She presents in state of mental decompensation in the context of psychosocial stressors including losing her job, her mother becoming hospitalized, financial stress, conflict with being able to enact her presybeterian beliefs. She is no longer able to care for herself, including feed herself has lost up to 40 pounds since onset of stressors end of August/beginning of September 2024. She has no psychiatric history prior to August 2024. Symptoms appear to directly correlate in their onset with psychosocial stressors. Anxiety has become significantly heightened, which appears to be the hardwick contributing factor to her inability to function at her normal baseline. Her sleep has been chronically poor but has since worsened. She was admitted to the hospital medical for dizziness/concerns for syncope on. There appears to be contributing organic medical causes at this time, the degree of which these are contributing to her inability to care for herself and psychiatric symptoms are unclear. She continues to meet criteria for functional neurologic disorder as well as provisionally for somatic symptom disorder as the majority of her thought content, anxiety is directed towards the distress around her somatic symptoms. 01/02/25: Improvement in capacity to be physically independent, ambulating around the unit, hyper focused on BMs. Overall Less anxiety, rigid thought process still focused on basic somatic concerns, mood remains depressed Safety risk: low risk of imminent self-harm, low risk of externalized violent behaviors Treatment Plan: Will continue mirtazapine to address, anxiety, depressive symptoms, sleep, and stimulate appetite. Will continue aripiprazole to further address the severity of her rigid thought process, mood, anxiety. Will continue slow taper off lorazepam, prescribed to manage short term acute anxiety which inhibits her capacity to complete basic self care and decision making. Safety risk: low risk of imminent self-harm, low risk of externalized violent behaviors Continue lorazepam 0.5 mg po BID to Qafternoon- Continue aripiprazole 5 mg po qd Continue mirtazapine 30 mg po qhs for anxiety/sleep/depression and stimulate appetite. Follow up with PT- Continue Q15 min checks Continue Groups/Milieu Engagement Spent approximately 30 minutes reviewing records and test results, assessing and treatment planning, completing care coordination and documenting the encounter. Discussed risks, including possible adverse effects, and benefits of treatment recommendations including no treatment. Voice recognition software may have been used to dictate this note. There may be errors due to use of such software. Reporting of serious errors is appreciated. Antibiotic Ordered?: No Objective Vitals Vital Signs Date Time Temp Pulse Resp B/P (MAP) Pulse Ox O2 Delivery O2 Flow Rate FiO2 01/02/25 14:03 16 01/02/25 08:51 98.3 86 141/71 (94) 97 Room Air Lab Results: 12/30/24 0643 12/30/24 0643 Problem\\Assessment\\Plan Problems/Diagnosis: (1) Functional neurological symptom disorder with mixed symptoms CODING VISIT-PSYCHIATRY Date of Service: Jan 02, 2025 Billing Provider: RACQUEL PERRY DNP Psych Common Visit Codes: [id number] INP/OBS CARE(Mod) RACQUEL PERRY DNP Jan 02, 2025 17:37
[2025-01-02 19:22] VITALS: BP 132/71; PULSE 89; RESP 16; TEMP 98.5; O2SAT 96
[2025-01-02 19:23] VITALS: RESP 16; O2SAT 96
--- NOTE | 2025-01-02 19:38 | PROGRESS NOTE ---
Daily Progress Note Providers to CC ~ Antibiotic Timeout Antibiotic Ordered?: No Subjective patient is seen in her room she mentioned that she has has not pass the stools for more then two days. MiraLax ordered Objective Vital Signs Date Time Temp Pulse Resp B/P (MAP) Pulse Ox O2 Delivery O2 Flow Rate FiO2 01/02/25 19:23 16 96 01/02/25 19:22 98.5 89 132/71 (91) Room Air Result Diagram: 12/30/24 0643 12/30/24 0643 General-patient not in any acute distress, awake chronically ill-appearing , unhappy looking HEENT-atraumatic normocephalic, neck supple without elevated JVD, no thyromegaly or carotid bruit. No lymphadenopathy bilaterally. Eyes-no icterus or pallor seen in eyes Chest-clear to auscultation bilaterally, breathing nonlabored no tachypnea, no wheezing, no crepitation, no crackles. Heart-S1-S2 normal, regular heart rate no murmur Abdomen bowel sounds positive on auscultation, soft nondistended nontender no guarding, no rigidity Skin no active skin rash Neurology-grossly intact, nonfocal awake, cooperated during physical examination Extremity- no pedal edema able to move all 4 extremities Problem\Assessment\Plan 59 years old female admitted at [facility] for anxiety and depression as well as panic attacks. # anxiety/depression/panic attacks: Continue treat per psych recommendations. # DVT left leg: Continue Eliquis #hyperlipidemia: Continue atorvastatin # hypertension: Continue losartan #hypothyroidism: Continue levothyroxine # GERD: Continue PPI I will sign off. Please contact the hospitalist team for any change in patient's medical condition. Hospitalist team will continue to follow the patient as per policy/protocol. Date of Service: Jan 02, 2025 Billing Provider: GISELA DIOP MD Common Visit Codes: [id number] INP/OBS CARE(LOW) GISELA DIOP MD Jan 02, 2025 19:38
[2025-01-02] MEDS: polyethylene glycol 3350 17gm powd pack PO SCH (20:53)
[2025-01-03 07:00] VITALS: RESP 15; O2SAT 99
[2025-01-03 08:15] VITALS: BP 138/88; PULSE 99; RESP 15; TEMP 98.5; O2SAT 97
--- NOTE | 2025-01-03 18:04 | PROGRESS NOTE ---
Progress Note Dictate Providers to CC ~ Progress Note: Admission date: 02/26/24 Status: VOL HPI: Per consultation by this provider on 12/17/24: Admitted to psychiatric unit on 12/20/24 after being hospitalized for evaluation of vertigo and hypokalemia. Full medical work up completed to rule out BPPV, posterior cerebral circulation stroke, Meniere's disease, vestibular schwannoma. for Consulted requested in the context that's psychiatric symptoms, including depression is a contributing factor to inability to eat failure to thrive, 40 pound weight loss in the past few months. Her brother reported changing behavior behaviors, including more irritable, compared to normal in the past few months. Per Brother: Brother thinks she is having nervous breakdown to "protect herself from what's going on". Per brother her thoughts have been scattered, and she is distracted easily, brother reports she has been very preoccupied with worries. Most days her brother would call and talk to her since end of August- september she wouldn't hve eaten at all during the day. Per brother she has no history of confusion, arguing, anxiety. Reports she will purposefully stay awake and get about 4 hours a day, because she likes to stay up late. States this has been her pattern "for as long as I can remember". Her baseline personality is trouble completing tasks because she will obsess about, "everything will take a long time". She has dread, guilt, anxiety, will be emotionally stuck- about not being able to tithe with the loss of her job. Her cousin came yesterday 12/16/24 and talked to her for over an hour about this issue. Brother states she was scared to drive to the grocery store, afraid to drive. Brother states she spent over an hour cleaning a taylor. Per patient: Patient shares she became more upset when her hospitalist was asking her questions, developed left sided rib and chest pain, she shares that her decision making is "I don't know". She relates this changed when she started "falling backwards" at her home, and after that she reflects she was having trouble with her balance, she had to be careful about bending over because it would "do something to my head". Notices the most issues when she was lay down flat in the bed- states it would feel like her head was moving inside. States she was at her current work for almost 19 years and then she was fired on September 18- in the context of "poor job performance" although when she was let go the sanitation manager told her she had a bad review. Then her mother was hospitalized (is age 83), states this was very stressful she has been a main caregiver for her mother. She has lived with her parents her whole life. Her shift in her ability to function occurred after her mother was hospitalized. She states she ahs been worried about "Everything" "no job, filling out unemployment paperwork". Appetite decreased since she lost her job and her mother was hospitalized. She states she thinks she was ok when she was able to tithe- (states she is very lutheran, raised in the evangelical), states she became financially strained with the loss of her job, her brother provided some financial support - because they cant afford property tax. She is upset because there was money and she didn't pay the tithe0 would she identifies as "sin" and being a thief. She states that "everything just fell apart all at once". Endorses she has lost confidence. Significant fear that if she didn't wake up she would be in Hell. Alert and Oriented X4, appropriate memory recall, attention intact States at home she would spend hours stating "I don't know what to do" unable to take action, and her mother would respond Admitted to psychiatric unit from 12/20- for functional neurologic disorder and somatic symptom disorder, transferred back to medical unit Psychiatric History: Age of initial treatment: no hx of mental health Outpatient: no hx Inpatient: no hx Historical Diagnoses (w/year): none Hx of suicide attempts: denies, denies hx of suicide Hx of self-harm: denies Hx of violence: denies Legal hx: denies Historical Psych Medications: denies Substances use history: Utox positive for benzodiazepines (was administered valium in the emergency department) no hx of substance use Social history: Lost her job at [employer] at end of August and since has been feeling sad, has had a sudden decline in PO intake, including food and water. Brother is concerned that she has become mentally shut down. For the reports concerns for new behaviors including becoming argumentative, uncooperative and losing her decision-making capacity. Druze, "I've been raised in evangelical my whole life". Today on Assessment: Still very focused on constipation, concern for swelling in her leg, has not found benefit from nursing interventions. Too afraid to fart because she is worried about pooping in bed. Psychiatric Medications: Aripiprazole Mirtazapine Lorazepam Side Effects: denies No evidence of TD, EPS AIMs: 0 Review of Psychiatric Symptoms: Mood: anxious, endorses helplessness. Still feels very scared. Suicide/self-harm: denies Sleep: waking up in the night due to concerns of bowl/bladder Appetite: still limited, but is still only 30% on average- fearfulness around eating, disturbed that the "cheese seems to grow" when she is chewing it. Feels good about drinking milk. Energy: tired r/t walking up and down the halls Anxiety: still significant worry about her future, finances, physical health, driving, (generalized anxiety). Irritability: endorses Homicidal/Anger: denies Hallucinations/Paranoia: denies Trauma symptoms: denies Symptoms related to substance withdrawal: denies Mental Status Evaluation General Appearance: hospital scrubs, short florentino hair, glasses, malodorous Eye contact: intermittent Demeanor: uncertain, anxious Orientation: to person, place, time, situation Speech: stuttering, hesitant Psychomotor Activity: within normal range Abnormal Body Movements: none observed Mood: uneasy Affect: constricted Suicidality: denies suicidal ideation Homicidally: denies Thought content: consistent with social norms Thought process: circumstantial Thought perceptions: no perceptual disorder noted Memory: appears intact Attention: appear attentive Insight: fair Judgment: fair - Current Medical Problems: r/o encephalopathy Dizziness/Near syncope- etiology unclear MRI normal no evidence of acute intracranial abnormality stroke ruled out EEG results 12/16/23: excess beta in otherwise normal background- nonspecific finding, but maybe seen in the setting of benzodiazepine or barbituate use 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 Hypothyroidism- taking levothyroxine Trouble hearing bilaterally DVT- 12/23-12/26 (treated on medical floor- on Eliquis) Cardiac HX: hypertension, LD elevated TBI Hx: 1980 - reports there have been no long lasting effects Seizure Hx: denies CHRISTINA Hx: denies Diagnoses Adjustment disorder with mixed anxiety and depressed mood Panic attacks Functional Neurological Disorder acute (met criteria for less than 6 months) Somatic symptom disorder (provisional, met criteria for less than 6 months) r/o dependent personality disorder Assessment: Transferred back from medical floor after treatment for DVTConstance Toney is a 59 year old female who presents for further evaluation and treatment of for adjustment disorder with mixed anxiety and depressed mood, panic attacks, functional neurologic disorder acute, somatic symptom disorder (provisional). She presents in state of mental decompensation in the context of psychosocial stressors including losing her job, her mother becoming hospitalized, financial stress, conflict with being able to enact her lutheran beliefs. She is no longer able to care for herself, including feed herself has lost up to 40 pounds since onset of stressors end of August/beginning of September 2024. She has no psychiatric history prior to August 2024. Symptoms appear to directly correlate in their onset with psychosocial stressors. Anxiety has become significantly heightened, which appears to be the hardwick contributing factor to her inability to function at her normal baseline. Her sleep has been chronically poor but has since worsened. She was admitted to the hospital medical for dizziness/concerns for syncope on. There appears to be contributing organic medical causes at this time, the degree of which these are contributing to her inability to care for herself and psychiatric symptoms are unclear. She continues to meet criteria for functional neurologic disorder as well as provisionally for somatic symptom disorder as the majority of her thought content, anxiety is directed towards the distress around her somatic symptoms. 01/03/25: Worsening perseveration about bowl movements, Less anxiety, rigid thought process still focused on basic somatic concerns, mood remains depressed. Safety risk: low risk of imminent self-harm, low risk of externalized violent behaviors Treatment Plan: Will continue mirtazapine to address, anxiety, depressive symptoms, sleep, and stimulate appetite. Will discontinue aripiprazole and start risperidone to further address the severity of her rigid thought process, mood, anxiety. Will continue slow taper off lorazepam, prescribed to manage short term acute anxiety which inhibits her capacity to complete basic self care and decision making. Will continue to encourage behavioral interventions for relaxation. Safety risk: low risk of imminent self-harm, low risk of externalized violent behaviors Continue lorazepam from 0.5 mg po from Qafternoon Discontinue aripiprazole 5 mg po qd Continue mirtazapine 30 mg po qhs for anxiety/sleep/depression and stimulate appetite. Follow up with PT- Continue Q15 min checks Continue Groups/Milieu Engagement Care coordination with Brother Spent approximately 30 minutes reviewing records and test results, assessing and treatment planning, completing care coordination and documenting the encounter. Discussed risks, including possible adverse effects, and benefits of treatment recommendations including no treatment. Voice recognition software may have been used to dictate this note. There may be errors due to use of such software. Reporting of serious errors is appreciated. Antibiotic Ordered?: No Objective Vitals Vital Signs Date Time Temp Pulse Resp B/P (MAP) Pulse Ox O2 Delivery O2 Flow Rate FiO2 01/03/25 14:50 16 01/03/25 08:15 98.5 99 138/88 (105) 97 Room Air Lab Results: 12/30/24 0643 12/30/24 0643 Problem\\Assessment\\Plan Problems/Diagnosis: (1) Functional neurological symptom disorder with mixed symptoms CODING VISIT-PSYCHIATRY Date of Service: Jan 03, 2025 Billing Provider: RACQUEL PERRY DNP Psych Common Visit Codes: [id number] INP/OBS CARE(Mod) RACQUEL PERRY DNP Jan 03, 2025 18:03
[2025-01-03 19:00] VITALS: RESP 18; O2SAT 99
[2025-01-03 19:17] VITALS: BP 132/72; PULSE 101; RESP 18; TEMP 98.6; O2SAT 99
[2025-01-04 07:00] VITALS: RESP 16; O2SAT 97
[2025-01-04 08:23] VITALS: BP 147/77; PULSE 91; RESP 16; TEMP 98.5; O2SAT 97
[2025-01-04 19:00] VITALS: RESP 20; O2SAT 98
--- NOTE | 2025-01-04 19:03 | PROGRESS NOTE- Residence ---
Progress Note - Resident Providers to CC Resident Creating Document: ROYCE SPANN, NICKIE ~ Antibiotic Timeout Antibiotic Ordered?: No Subjective The patient has been evaluated in mental health unit. The patient is moving around with her wheelchair. Currently denies any medical complaints. Objective Vital Signs Date Time Temp Pulse Resp B/P (MAP) Pulse Ox O2 Delivery O2 Flow Rate FiO2 01/04/25 13:12 16 01/04/25 08:23 98.5 91 147/77 (100) 97 Room Air Physical exam: General: Awake, alert, oriented. No acute distress. Well-developed, hydrated and well-built nourished. No anemia, Jaundice or clubbing. HEENT: Conjunctive are pink, sclerae clear, no icterus, pupil is equal in both sides, reactive to light, no ear discharge, no pharyngeal erythema or an edema. Presence of mass in the level of the left side of the forehead-chronic. Neck: Supple, no adenopathy, thyromegaly. Trachea is midline. No JVD. Chest: Respiratory: Vesicular breath sounds. No ronchi, crepitus or wheezing. Resonance is normal upon percussion of all lung salcedo. Cardiovascular: S1-S2 regular sinus rhythm and, regular rate, no gallops, no rubs, no murmurs Abdomen: No visible distention, Bowel sounds present on auscultation, on palpation: soft, nontender, no guarding, no rigidity. Extremities: No obvious deformities, left lower extremity edema. Neurologic: No focal neurological deficits. Awake, alert, oriented x3. Skin: Warm and dry. Assessment Assessment 59-year-old female patient admitted to mental health unit due to anxiety and major depressive disorder. Plan Plan Anxiety/depression/panic attacks: Continue treat per psychiatry recommendations. DVT left leg: Eliquis 5 mg b.i.d. Hyperlipidemia: Continue atorvastatin 20 mg Hypertension: Current blood pressure within the normal range Continue losartan 50 mg Hypothyroidism: Continue levothyroxine 175 mcg GERD: Protonix 40 mg daily. Disposition: Hospitalist team will continue to evaluate the patient in mental health unit. Royce Boyd Internal Medicine Resident [facility] Date of Service: Jan 04, 2025 Billing Provider: RAPHAEL IVEY MD Common Visit Codes: [id number] INP/OBS CARE(MOD) ROYCE SPANN, RES Jan 04, 2025 19:03 RAPHAEL IVEY MD Jan 05, 2025 06:39
[2025-01-04 19:24] VITALS: BP 141/82; PULSE 104; RESP 20; TEMP 98.4; O2SAT 98
--- NOTE | 2025-01-04 19:39 | PROGRESS NOTE ---
Progress Note Dictate Providers to CC ~ Progress Note: Admission date: 02/26/24 Status: VOL HPI: Per consultation by this provider on 12/17/24: Admitted to psychiatric unit on 12/20/24 after being hospitalized for evaluation of vertigo and hypokalemia. Full medical work up completed to rule out BPPV, posterior cerebral circulation stroke, Meniere's disease, vestibular schwannoma. for Consulted requested in the context that's psychiatric symptoms, including depression is a contributing factor to inability to eat failure to thrive, 40 pound weight loss in the past few months. Her brother reported changing behavior behaviors, including more irritable, compared to normal in the past few months. Per Brother: Brother thinks she is having nervous breakdown to "protect herself from what's going on". Per brother her thoughts have been scattered, and she is distracted easily, brother reports she has been very preoccupied with worries. Most days her brother would call and talk to her since end of August- september she wouldn't hve eaten at all during the day. Per brother she has no history of confusion, arguing, anxiety. Reports she will purposefully stay awake and get about 4 hours a day, because she likes to stay up late. States this has been her pattern "for as long as I can remember". Her baseline personality is trouble completing tasks because she will obsess about, "everything will take a long time". She has dread, guilt, anxiety, will be emotionally stuck- about not being able to tithe with the loss of her job. Her cousin came yesterday 12/16/24 and talked to her for over an hour about this issue. Brother states she was scared to drive to the grocery store, afraid to drive. Brother states she spent over an hour cleaning a taylor. Per patient: Patient shares she became more upset when her hospitalist was asking her questions, developed left sided rib and chest pain, she shares that her decision making is "I don't know". She relates this changed when she started "falling backwards" at her home, and after that she reflects she was having trouble with her balance, she had to be careful about bending over because it would "do something to my head". Notices the most issues when she was lay down flat in the bed- states it would feel like her head was moving inside. States she was at her current work for almost 19 years and then she was fired on September 18- in the context of "poor job performance" although when she was let go the civil manager told her she had a bad review. Then her mother was hospitalized (is age 83), states this was very stressful she has been a main caregiver for her mother. She has lived with her parents her whole life. Her shift in her ability to function occurred after her mother was hospitalized. She states she ahs been worried about "Everything" "no job, filling out unemployment paperwork". Appetite decreased since she lost her job and her mother was hospitalized. She states she thinks she was ok when she was able to tithe- (states she is very spiritism, raised in the tenriism), states she became financially strained with the loss of her job, her brother provided some financial support - because they cant afford property tax. She is upset because there was money and she didn't pay the tithe0 would she identifies as "sin" and being a thief. She states that "everything just fell apart all at once". Endorses she has lost confidence. Sig nificant fear that if she didn't wake up she would be in Hell. Alert and Oriented X4, appropriate memory recall, attention intact States at home she would spend hours stating "I don't know what to do" unable to take action, and her mother would respond Admitted to psychiatric unit from 12/20- for functional neurologic disorder and somatic symptom disorder, transferred back to medical unit Psychiatric History: Age of initial treatment: no hx of mental health Outpatient: no hx Inpatient: no hx Historical Diagnoses (w/year): none Hx of suicide attempts: denies, denies hx of suicide Hx of self-harm: denies Hx of violence: denies Legal hx: denies Historical Psych Medications: denies Substances use history: Utox positive for benzodiazepines (was administered valium in the emergency department) no hx of substance use Social history: Lost her job at [employer] at end of August and since has been feeling sad, has had a sudden decline in PO intake, including food and water. Brother is concerned that she has become mentally shut down. For the reports concerns for new behaviors including becoming argumentative, uncooperative and losing her decision-making capacity. Oriental Orthodox, "I've been raised in tenriism my whole life". Today on Assessment: Still very focused on constipation, concern for swelling in her leg, has not found benefit from nursing interventions. Too afraid to fart because she is worried about pooping in bed. Psychiatric Medications: Aripiprazole Mirtazapine Lorazepam Side Effects: denies No evidence of TD, EPS AIMs: 0 Review of Psychiatric Symptoms: Mood: anxious, endorses helplessness. Still feels very scared. Suicide/self-harm: denies Sleep: waking up in the night due to concerns of bowl/bladder Appetite: still limited, but is still only 30% on average- fearfulness around eating, disturbed that the "cheese seems to grow" when she is chewing it. Feels good about drinking milk. Energy: tired r/t walking up and down the halls Anxiety: still significant worry about her future, finances, physical health, driving, (generalized anxiety). Irritability: endorses Homicidal/Anger: denies Hallucinations/Paranoia: denies Trauma symptoms: denies Symptoms related to substance withdrawal: denies Mental Status Evaluation General Appearance: hospital scrubs, short florentino hair, glasses, malodorous Eye contact: intermittent Demeanor: uncertain, anxious Orientation: to person, place, time, situation Speech: stuttering, hesitant Psychomotor Activity: within normal range Abnormal Body Movements: none observed Mood: uneasy Affect: constricted Suicidality: denies suicidal ideation Homicidally: denies Thought content: consistent with social norms Thought process: circumstantial Thought perceptions: no perceptual disorder noted Memory: appears intact Attention: appear attentive Insight: fair Judgment: fair - Current Medical Problems: r/o encephalopathy Dizziness/Near syncope- etiology unclear MRI normal no evidence of acute intracranial abnormality stroke ruled out EEG results 12/16/23: excess beta in otherwise normal background- nonspecific finding, but maybe seen in the setting of benzodiazepine or barbituate use 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 Hypothyroidism- taking levothyroxine Trouble hearing bilaterally DVT- 12/23-12/26 (treated on medical floor- on Eliquis) Cardiac HX: hypertension, LD elevated TBI Hx: 1980 - reports there have been no long lasting effects Seizure Hx: denies CHRISTINA Hx: denies Diagnoses Adjustment disorder with mixed anxiety and depressed mood Panic attacks Functional Neurological Disorder acute (met criteria for less than 6 months) Somatic symptom disorder (provisional, met criteria for less than 6 months) r/o dependent personality disorder Assessment: Transferred back from medical floor after treatment for DVTConstance Toney is a 59 year old female who presents for further evaluation and treatment of for adjustment disorder with mixed anxiety and depressed mood, panic attacks, functional neurologic disorder acute, somatic symptom disorder (provisional). She presents in state of mental decompensation in the context of psychosocial stressors including losing her job, her mother becoming hospitalized, financial stress, conflict with being able to enact her spiritism beliefs. She is no longer able to care for herself, including feed herself has lost up to 40 pounds since onset of stressors end of August/beginning of September 2024. She has no psychiatric history prior to August 2024. Symptoms appear to directly correlate in their onset with psychosocial stressors. Anxiety has become significantly heightened, which appears to be the hardwick contributing factor to her inability to function at her normal baseline. Her sleep has been chronically poor but has since worsened. She was admitted to the hospital medical for dizziness/concerns for syncope on. There appears to be contributing organic medical causes at this time, the degree of which these are contributing to her inability to care for herself and psychiatric symptoms are unclear. She continues to meet criteria for functional neurologic disorder as well as provisionally for somatic symptom disorder as the majority of her thought content, anxiety is directed towards the distress around her somatic symptoms. 01/04/25: Worsening perseveration about bowl movements, unable to redirect from worries, rigid thought process still focused on basic somatic concerns, mood remains depressed. Very concerned about how she will care for herself after discharge. Safety risk: low risk of imminent self-harm, low risk of externalized violent behaviors Treatment Plan: Will continue mirtazapine to address, anxiety, depressive symptoms, sleep, and stimulate appetite. Will discontinue aripiprazole and start risperidone to further address the severity of her rigid thought process, mood, anxiety. Will continue slow taper off lorazepam, prescribed to manage short term acute anxiety which inhibits her capacity to complete basic self care and decision making. Will continue to encourage behavioral interventions for relaxation. Safety risk: low risk of imminent self-harm, low risk of externalized violent behaviors Start risperidone 0.5 mg po BID Discontinue lorazepam 0.5 mg po from Qafternoon Continue mirtazapine 30 mg po qhs for anxiety/sleep/depression and stimulate appetite. Follow up with PT- Continue Q15 min checks Continue Groups/Milieu Engagement Care coordination with Brother Spent approximately 30 minutes reviewing records and test results, assessing and treatment planning, completing care coordination and documenting the encounter. Discussed risks, including possible adverse effects, and benefits of treatment recommendations including no treatment. Voice recognition software may have been used to dictate this note. There may be errors due to use of such software. Reporting of serious errors is appreciated. Antibiotic Ordered?: No Objective Vitals Vital Signs Date Time Temp Pulse Resp B/P (MAP) Pulse Ox O2 Delivery O2 Flow Rate FiO2 01/04/25 19:24 98.4 104 20 141/82 (101) 98 Room Air Problem\\Assessment\\Plan Problems/Diagnosis: (1) Functional neurological symptom disorder with mixed symptoms CODING VISIT-PSYCHIATRY Date of Service: Jan 04, 2025 Billing Provider: RACQUEL PERRY DNP Psych Common Visit Codes: [id number] INP/OBS CARE(Low) RACQUEL PERRY DNP Jan 04, 2025 19:39
[2025-01-05 07:33] VITALS: RESP 16; O2SAT 97
[2025-01-05 08:46] VITALS: BP 139/70; PULSE 102; RESP 16; TEMP 97.7; O2SAT 97
--- NOTE | 2025-01-05 14:56 | PROGRESS NOTE ---
Progress Note Dictate Providers to CC ~ Progress Note: Admission date: 02/26/24 Status: VOL HPI: Per consultation by this provider on 12/17/24: Admitted to psychiatric unit on 12/20/24 after being hospitalized for evaluation of vertigo and hypokalemia. Full medical work up completed to rule out BPPV, posterior cerebral circulation stroke, Meniere's disease, vestibular schwannoma. for Consulted requested in the context that's psychiatric symptoms, including depression is a contributing factor to inability to eat failure to thrive, 40 pound weight loss in the past few months. Her brother reported changing behavior behaviors, including more irritable, compared to normal in the past few months. Per Brother: Brother thinks she is having nervous breakdown to "protect herself from what's going on". Per brother her thoughts have been scattered, and she is distracted easily, brother reports she has been very preoccupied with worries. Most days her brother would call and talk to her since end of August- september she wouldn't hve eaten at all during the day. Per brother she has no history of confusion, arguing, anxiety. Reports she will purposefully stay awake and get about 4 hours a day, because she likes to stay up late. States this has been her pattern "for as long as I can remember". Her baseline personality is trouble completing tasks because she will obsess about, "everything will take a long time". She has dread, guilt, anxiety, will be emotionally stuck- about not being able to tithe with the loss of her job. Her cousin came yesterday 12/16/24 and talked to her for over an hour about this issue. Brother states she was scared to drive to the grocery store, afraid to drive. Brother states she spent over an hour cleaning a taylor. Per patient: Patient shares she became more upset when her hospitalist was asking her questions, developed left sided rib and chest pain, she shares that her decision making is "I don't know". She relates this changed when she started "falling backwards" at her home, and after that she reflects she was having trouble with her balance, she had to be careful about bending over because it would "do something to my head". Notices the most issues when she was lay down flat in the bed- states it would feel like her head was moving inside. States she was at her current work for almost 19 years and then she was fired on September 18- in the context of "poor job performance" although when she was let go the international marketing manager told her she had a bad review. Then her mother was hospitalized (is age 83), states this was very stressful she has been a main caregiver for her mother. She has lived with her parents her whole life. Her shift in her ability to function occurred after her mother was hospitalized. She states she ahs been worried about "Everything" "no job, filling out unemployment paperwork". Appetite decreased since she lost her job and her mother was hospitalized. She states she thinks she was ok when she was able to tithe- (states she is very lutheran, raised in the islam), states she became financially strained with the loss of her job, her brother provided some financial support - because they cant afford property tax. She is upset because there was money and she didn't pay the tithe0 would she identifies as "sin" and being a thief. She states that "everything just fell apart all at once". Endorses she has lost confidence. Sig nificant fear that if she didn't wake up she would be in [place]. Alert and Oriented X4, appropriate memory recall, attention intact States at home she would spend hours stating "I don't know what to do" unable to take action, and her mother would respond Admitted to psychiatric unit from 12/20- for functional neurologic disorder and somatic symptom disorder, transferred back to medical unit Psychiatric History: Age of initial treatment: no hx of mental health Outpatient: no hx Inpatient: no hx Historical Diagnoses (w/year): none Hx of suicide attempts: denies, denies hx of suicide Hx of self-harm: denies Hx of violence: denies Legal hx: denies Historical Psych Medications: denies Substances use history: Utox positive for benzodiazepines (was administered valium in the emergency department) no hx of substance use Social history: Lost her job at [employer] at end of August and since has been feeling sad, has had a sudden decline in PO intake, including food and water. Brother is concerned that she has become mentally shut down. For the reports concerns for new behaviors including becoming argumentative, uncooperative and losing her decision-making capacity. Quaker, "I've been raised in islam my whole life". Today on Assessment: Calmer, lying in bed, some expression of contentmetn Psychiatric Medications: Risperidone Mirtazapine Side Effects: denies No evidence of TD, EPS AIMs: 0 Review of Psychiatric Symptoms: Mood: anxious, endorses helplessness. Still feels very scared. Suicide/self-harm: denies Sleep: waking up in the night due to concerns of bowl/bladder Appetite: still limited, but is still only 30% on average- fearfulness around eating, disturbed that the "cheese seems to grow" when she is chewing it. Feels good about drinking milk. Energy: tired r/t walking up and down the halls Anxiety: still significant worry about her future, finances, physical health, driving, (generalized anxiety). Irritability: endorses Homicidal/Anger: denies Hallucinations/Paranoia: denies Trauma symptoms: denies Symptoms related to substance withdrawal: denies Mental Status Evaluation General Appearance: hospital scrubs, short florentino hair, glasses, malodorous Eye contact: intermittent Demeanor: uncertain, anxious Orientation: to person, place, time, situation Speech: stuttering, hesitant Psychomotor Activity: within normal range Abnormal Body Movements: none observed Mood: uneasy Affect: constricted Suicidality: denies suicidal ideation Homicidally: denies Thought content: consistent with social norms Thought process: circumstantial Thought perceptions: no perceptual disorder noted Memory: appears intact Attention: appear attentive Insight: fair Judgment: fair - Current Medical Problems: r/o encephalopathy Dizziness/Near syncope- etiology unclear MRI normal no evidence of acute intracranial abnormality stroke ruled out EEG results 12/16/23: excess beta in otherwise normal background- nonspecific finding, but maybe seen in the setting of benzodiazepine or barbituate use 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 Hypothyroidism- taking levothyroxine Trouble hearing bilaterally DVT- 12/23-12/26 (treated on medical floor- on Eliqu) Cardiac HX: hypertension, LD elevated TBI Hx: 1981 - reports there have been no long lasting effects Seizure Hx: denies CHRISTINA Hx: denies Diagnoses Adjustment disorder with mixed anxiety and depressed mood Panic attacks Functional Neurological Disorder acute (met criteria for less than 6 months) Somatic symptom disorder (provisional, met criteria for less than 6 months) r/o dependent personality disorder Assessment: Transferred back from medical floor after treatment for DVTConstance Toney is a 59 year old female who presents for further evaluation and treatment of for adjustment disorder with mixed anxiety and depressed mood, panic attacks, functional neurologic disorder acute, somatic symptom disorder (provisional). She presents in state of mental decompensation in the context of psychosocial stressors including losing her job, her mother becoming hospitalized, financial stress, conflict with being able to enact her lutheran beliefs. She is no longer able to care for herself, including feed herself has lost up to 40 pounds since onset of stressors end of August/beginning of September 2024. She has no ps ychiatric history prior to August 2024. Symptoms appear to directly correlate in their onset with psychosocial stressors. Anxiety has become significantly heightened, which appears to be the hardwick contributing factor to her inability to function at her normal baseline. Her sleep has been chronically poor but has since worsened. She was admitted to the [facility] for dizziness/concerns for syncope on. There appears to be contributing organic medical causes at this time, the degree of which these are contributing to her inability to care for herself and psychiatric symptoms are unclear. She continues to meet criteria for functional neurologic disorder as well as provisionally for somatic symptom disorder as the majority of her thought content, anxiety is directed towards the distress around her somatic symptoms. 01/05/25: Calmer and less preoccupied on interview, rigid thought process still focused on basic somatic concerns, mood remains depressed. Safety risk: low risk of imminent self-harm, low risk of externalized violent behaviors Treatment Plan: Will continue mirtazapine to address, anxiety, depressive symptoms, sleep, and stimulate appetite. Will discontinue aripiprazole and start risperidone to further address the severity of her rigid thought process, mood, anxiety. Will continue slow taper off lorazepam, prescribed to manage short term acute anxiety which inhibits her capacity to complete basic self care and decision making. Will continue to encourage behavioral interventions for relaxation. Safety risk: low risk of imminent self-harm, low risk of externalized violent behaviors Continue risperidone 0.5 mg po BID Continue mirtazapine 30 mg po qhs for anxiety/sleep/depression and stimulate appetite. Follow up with PT- Continue Q15 min checks Continue Groups/Milieu Engagement Care coordination with [facility]-- Discharge: will Send Medications to [facility] Next week meeting with [facility] then can attain [facility] worker once her insurance applies Spent approximately 30 minutes reviewing records and test results, assessing and treatment planning, completing care coordination and documenting the encounter. Discussed risks, including possible adverse effects, and benefits of treatment recommendations including no treatment. Voice recognition software may have been used to dictate this note. There may be errors due to use of such software. Reporting of serious errors is appreciated. Antibiotic Ordered?: No Objective Vitals Vital Signs Date Time Temp Pulse Resp B/P (MAP) Pulse Ox O2 Delivery O2 Flow Rate FiO2 01/05/25 08:46 97.7 102 16 139/70 (93) 97 Room Air Problem\\Assessment\\Plan Problems/Diagnosis: (1) Functional neurological symptom disorder with mixed symptoms CODING VISIT-PSYCHIATRY Date of Service: Jan 05, 2025 Billing Provider: RACQUEL PERRY DNP Psych Common Visit Codes: [id number] INP/OBS CARE(Low) RACQUEL PERRY DNP Jan 05, 2025 14:56
[2025-01-05 19:00] VITALS: RESP 17; O2SAT 98
[2025-01-05 20:00] VITALS: BP 140/71; PULSE 97; RESP 17; TEMP 98.5; O2SAT 98
[2025-01-06 07:00] VITALS: RESP 12; O2SAT 94
[2025-01-06 08:00] VITALS: BP 143/75; PULSE 94; RESP 12; TEMP 97.7
[2025-01-06 12:12] LABS: MEAN PLATELET VOLUME 7.8 FL (7.4-10.4); RED CELL DISTRIBUTION WIDTH 15.8 % (11.5-14.5)
[2025-01-06 12:27] LABS: CREATININE 0.76 MG/DL (0.40-0.90); TOTAL CARBON DIOXIDE 30.7 MMOL/L (24-32); eCRCL 64 ML/MIN; eGFR 77 ML/MIN
--- NOTE | 2025-01-06 17:59 | PROGRESS NOTE- Residence ---
Progress Note - Resident Providers to CC Resident Creating Document: [facility] ~ Antibiotic Timeout Antibiotic Ordered?: No Subjective Patient was seen and examined in mental health unit. The patient is moving around with her wheelchair. She denies any medical complaints. Objective Vital Signs Date Time Temp Pulse Resp B/P (MAP) Pulse Ox O2 Delivery O2 Flow Rate FiO2 01/06/25 08:00 94 01/06/25 08:00 97.7 12 143/75 (97) Room Air 01/06/25 07:00 94 Result Diagram: 01/06/25 1152 01/06/25 1152 Awake , alert, and oriented x4, resting comfortably in the bed, in no acute distress HEENT: Atraumatic, normocephalic, EOMI, anicteric sclera ; pink conjunctiva Neck: Trachea midline. Supple, full range of motion, no JVD Cardiac: Regular rhythm, regular rate with no murmurs all over the precordium. Respiratory: Equal breath sounds bilaterally, no tachypnea, no wheezing ,rub or rales, Chest wall is symmetric and without deformity. Gastrointestinal: Abdomen symmetric, non-distended, soft, non-tender, normal bowel sounds x4 quadrant, normoactive, no hepatosplenomegaly Musculoskeletal: No pedal edema, no cyanosis Neurological: Speech is clear, alert, and oriented x 4. No focal neurological deficits. Skin: Warm and dry Assessment Assessment 59-year-old female patient admitted to mental health unit due to anxiety and major depressive disorder. Plan Plan Anxiety/depression/panic attacks: Continue management as per psychiatric team DVT left leg: Eliquis 5 mg b.i.d. Hyperlipidemia: Continue atorvastatin 20 mg Hypertension: Blood pressure is stable Continue losartan 50 mg Hypothyroidism: Continue levothyroxine 175 mcg GERD: Protonix 40 mg daily. Disposition: Hospitalist team will continue to evaluate the patient in mental health unit. Wellington Heller MD Internal Medicine resident, PGY-1 Date of Service: Jan 06, 2025 Billing Provider: CALLY GONZALEZ DO Common Visit Codes: [id number] INP/OBS CARE(LOW) [facility] Jan 06, 2025 17:59 CALLY GONZALEZ DO Jan 06, 2025 18:03
[2025-01-06 19:00] VITALS: RESP 17; O2SAT 98
[2025-01-06 20:00] VITALS: BP 138/73; PULSE 97; RESP 20; TEMP 97.8; O2SAT 99
--- NOTE | 2025-01-06 20:27 | PROGRESS NOTE ---
Progress Note Dictate Providers to CC ~ Central Line/PICC still needed: N\\A Antibiotic Ordered?: No MRSA Education MRSA Education Provided to pt: No Objective Vitals Vital Signs Date Time Temp Pulse Resp B/P (MAP) Pulse Ox O2 Delivery O2 Flow Rate FiO2 01/06/25 08:00 94 01/06/25 08:00 97.7 12 143/75 (97) Room Air 01/06/25 07:00 94 Lab Results: 01/06/25 1152 01/06/25 1152 Psychiatrist's Progress Note Date of Service: Jan 06, 2025 Notes CHART REVIEW The pt was placed on a 5150 hold for GD after it was reported that she was unable to articulate how she will take care of her activities of daily living. The pt recently experienced two life altering events; she lost her job that she had for 19 years, her elderly mother recently became ill and was hospitalized. The pt reports having always lived with her parents, father is now. The pt was not able to fully participate in today's assessment, often answering questions with "I don't know or "I don't know how to answer that" and became very anxious and hyper focused on insurance and how she will obtain medications. The pt reports having never , no children. The pt will likely discharge to her home once stabilized. ASSESSMENT The patient was interviewed in observation room. The patient was actively ambulating in the hallway with female peer. The patient endorses "alright. The patient endorses no worsening mental health symptoms. Denies SI. Denies HI. Denies AVH. The patient is stable no acute distress noted. The patient presents as calm and cooperative. Per staff report the patient is medication compliant. Per staff no abnormal behaviors. Will continue daily assessment and adjusting treatment as needed. Closely monitor behavior and response to medication during hospitalization. Speech: Normal Eye Contact: Normal Motor Activity: Normal Affect: Full Orientation Impairment: None Memory Impairment: None Attention: Normal Hallucinations: None Other: None Suicidality: None Homicidality: None Delusions: None Behavior: Cooperative Insight: Fair Judgment: Fair Treatment REMERON 30MG PO QHS RISPERIDONE 0.5MG PO BID VOLUNTARY Monitoring by Staff, Milieu, Group, and Individual counseling as needed -- According to the [place] Suicide Assessment the above named patient is on Q15 MINUTE CHECKS. Total time spent 40 minutes on REVIEW OF Clinical notes [X ] RN notes [X] PCT documentation [X] SW notes Labs [ X] Medications [X] Care trends/care activity [X] Vitals [X] DISCUSSION WITH telephoner [X] Discharge UNSURE AT THIS TIME. DISCHARGE HOME ONCE STABLE. CODING VISIT-PSYCHIATRY Date of Service: Jan 06, 2025 Billing Provider: RAMIRO GODOY APRN Psych Common Visit Codes: [id number] INP/OBS CARE(Mod) RAMIRO GODOY APRN Jan 06, 2025 20:27
[2025-01-07 07:00] VITALS: RESP 16; O2SAT 99
[2025-01-07 08:00] VITALS: BP 148/82; PULSE 86; RESP 16; TEMP 97.9; O2SAT 99
--- NOTE | 2025-01-07 10:23 | PROGRESS NOTE ---
Progress Note Dictate Providers to CC ~ Central Line/PICC still needed: N\\A Antibiotic Ordered?: No MRSA Education MRSA Education Provided to pt: No Objective Vitals Vital Signs Date Time Temp Pulse Resp B/P (MAP) Pulse Ox O2 Delivery O2 Flow Rate FiO2 01/07/25 08:57 86 01/07/25 08:00 97.9 16 148/82 (104) 99 Room Air Lab Results: 01/06/25 1152 01/06/25 1152 Psychiatrist's Progress Note Date of Service: Jan 07, 2025 Notes CHART REVIEW The pt was placed on a 5150 hold for GD after it was reported that she was unable to articulate how she will take care of her activities of daily living. The pt recently experienced two life altering events; she lost her job that she had for 19 years, her elderly mother recently became ill and was hospitalized. The pt reports having always lived with her parents, father is now. The pt was not able to fully participate in today's assessment, often answering questions with "I don't know or "I don't know how to answer that" and became very anxious and hyper focused on insurance and how she will obtain medications. The pt reports having never , no children. The pt will likely discharge to her home once stabilized. ASSESSMENT The patient was interviewed in observation room. The patient was actively sitting up in wheelchair. The patient endorses "good. The patient endorses she is excited about going home this week but she was concerned because her brother only days off are Sundays and Mondays. The patient endorses no worsening mental health symptoms. Denies SI. Denies HI. Denies AVH. The patient is stable no acute distress noted. The patient presents as calm and cooperative. Per staff report the patient is medication compliant. Per staff no abnormal behaviors. Will continue daily assessment and adjusting treatment as needed. Closely monitor behavior and response to medication during hospitalization. Speech: Normal Eye Contact: Normal Motor Activity: Normal Affect: Full Orientation Impairment: None Memory Impairment: None Attention: Normal Hallucinations: None Other: None Suicidality: None Homicidality: None Delusions: None Behavior: Cooperative Insight: Fair Judgment: Fair Treatment REMERON 30MG PO QHS RISPERIDONE 0.5MG PO BID VOLUNTARY Monitoring by Staff, Milieu, Group, and Individual counseling as needed -- According to the [place] Suicide Assessment the above named patient is on Q15 MINUTE CHECKS. Total time spent 30 minutes on REVIEW OF Clinical notes [X ] RN notes [X] PCT documentation [X] SW notes Labs [ X] Medications [X] Care trends/care activity [X] Vitals [X] DISCUSSION WITH manager french [X] Discharge UNSURE AT THIS TIME. DISCHARGE HOME ONCE STABLE. CODING VISIT-PSYCHIATRY Date of Service: Jan 07, 2025 Billing Provider: RAMIRO GODOY APRN Psych Common Visit Codes: [id number] INP/OBS CARE(Mod) RAMIRO GODOY APRN Jan 07, 2025 10:23
[2025-01-07 19:00] VITALS: RESP 16; O2SAT 97
[2025-01-07 20:00] VITALS: BP 127/77; PULSE 105; RESP 16; TEMP 96.8; O2SAT 97
[2025-01-08 06:52] VITALS: BP 156/78; PULSE 91; RESP 16; O2SAT 98
[2025-01-08 07:10] VITALS: RESP 16; O2SAT 98
[2025-01-08] MEDS ORDERED: ATOR20TA66 PO (10:25)
[2025-01-08] MEDS ORDERED: MIRT-87 PO (10:25)
[2025-01-08] MEDS ORDERED: RISP0.5T74 PO (10:25)
--- NOTE | 2025-01-08 16:12 | PROGRESS NOTE ---
Progress Note Dictate Providers to CC ~ Progress Note: Admission date: 02/26/24 Status: VOL HPI: Per consultation by this provider on 12/17/24: Admitted to psychiatric unit on 12/20/24 after being hospitalized for evaluation of vertigo and hypokalemia. Full medical work up completed to rule out BPPV, posterior cerebral circulation stroke, Meniere's disease, vestibular schwannoma. for Consulted requested in the context that's psychiatric symptoms, including depression is a contributing factor to inability to eat failure to thrive, 40 pound weight loss in the past few months. Her brother reported changing behavior behaviors, including more irritable, compared to normal in the past few months. Per Brother: Brother thinks she is having nervous breakdown to "protect herself from what's going on". Per brother her thoughts have been scattered, and she is distracted easily, brother reports she has been very preoccupied with worries. Most days her brother would call and talk to her since end of August- september she wouldn't hve eaten at all during the day. Per brother she has no history of confusion, arguing, anxiety. Reports she will purposefully stay awake and get about 4 hours a day, because she likes to stay up late. States this has been her pattern "for as long as I can remember". Her baseline personality is trouble completing tasks because she will obsess about, "everything will take a long time". She has dread, guilt, anxiety, will be emotionally stuck- about not being able to tithe with the loss of her job. Her cousin came yesterday 12/16/24 and talked to her for over an hour about this issue. Brother states she was scared to drive to the grocery store, afraid to drive. Brother states she spent over an hour cleaning a taylor. Per patient: Patient shares she became more upset when her hospitalist was asking her questions, developed left sided rib and chest pain, she shares that her decision making is "I don't know". She relates this changed when she started "falling backwards" at her home, and after that she reflects she was having trouble with her balance, she had to be careful about bending over because it would "do something to my head". Notices the most issues when she was lay down flat in the bed- states it would feel like her head was moving inside. 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 Then her mother was hospitalized (is age 83), states this was very stressful she has been a main caregiver for her mother. She has lived with her parents her whole life. Her shift in her ability to function occurred after her mother was hospitalized. She states she ahs been worried about "Everything" "no job, filling out unemployment paperwork". Appetite decreased since she lost her job and her mother was hospitalized. She states she thinks she was ok when she was able to tithe- (states she is very zoroastrian, raised in the temple), states she became financially strained with the loss of her job, her brother provided some financial support - because they cant afford property tax. She is upset because there was money and she didn't pay the tithe0 would she identifies as "sin" and being a thief. She states that "everything just fell apart all at once". Endorses she has lost confidence. Significant fear that if she didn't wake up she would be in [place]. Alert and Oriented X4, appropriate memory recall, attention intact States at home she would spend hours stating "I don't know what to do" unable to take action, and her mother would respond Admitted to psychiatric unit from 12/20- for functional neurologic disorder and somatic symptom disorder, transferred back to medical unit Psychiatric History: Age of initial treatment: no hx of mental health Outpatient: no hx Inpatient: no hx Historical Diagnoses (w/year): none Hx of suicide attempts: denies, denies hx of suicide Hx of self-harm: denies Hx of violence: denies Legal hx: denies Historical Psych Medications: denies Substances use history: Utox positive for benzodiazepines (was administered valium in the emergency department) no hx of substance use Social history: Lost her job at [employer] at end of August and since has been feeling sad, has had a sudden decline in PO intake, including food and water. Brother is concerned that she has become mentally shut down. For the reports concerns for new behaviors including becoming argumentative, uncooperative and losing her decision-making capacity. Quaker, "I've been raised in temple my whole life". Today on Assessment: Panic attack this morning, fearful about discharging, brother doesnt want her to go home if she can't walk, PT will come evaluate her in the context that she is fully able to walk and she perceives her self as in able. Psychiatric Medications: Risperidone Mirtazapine Side Effects: denies No evidence of TD, EPS AIMs: 0 Review of Psychiatric Symptoms: Mood: anxious, endorses helplessness. Still feels very scared. Suicide/self-harm: denies Sleep: waking up in the night due to concerns of bowl/bladder Appetite: still limited, but is still only 30% on average- fearfulness around eating, disturbed that the "cheese seems to grow" when she is chewing it. Feels good about drinking milk. Energy: tired r/t walking up and down the halls Anxiety: still significant worry about her future, finances, physical health, driving, (generalized anxiety). Irritability: endorses Homicidal/Anger: denies Hallucinations/Paranoia: denies Trauma symptoms: denies Symptoms related to substance withdrawal: denies Mental Status Evaluation General Appearance: hospital scrubs, short florentino hair, glasses, malodorous Eye contact: intermittent Demeanor: uncertain, anxious Orientation: to person, place, time, situation Speech: stuttering, hesitant Psychomotor Activity: within normal range Abnormal Body Movements: none observed Mood: uneasy Affect: constricted Suicidality: denies suicidal ideation Homicidally: denies Thought content: consistent with social norms Thought process: circumstantial Thought perceptions: no perceptual disorder noted Memory: appears intact Attention: appear attentive Insight: fair Judgment: fair - Current Medical Problems: r/o encephalopathy Dizziness/Near syncope- etiology unclear MRI normal no evidence of acute intracranial abnormality stroke ruled out EEG results 12/16/23: excess beta in otherwise normal background- nonspecific finding, but maybe seen in the setting of benzodiazepine or barbituate use 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 Hypothyroidism- taking levothyroxine Trouble hearing bilaterally DVT- 12/23-12/26 (treated on medical floor- on Eliquis) Cardiac HX: hypertension, LD elevated TBI Hx: 1982 - reports there have been no long lasting effects Seizure Hx: denies CHRISTINA Hx: denies Diagnoses Adjustment disorder with mixed anxiety and depressed mood Panic attacks Functional Neurological Disorder acute (met criteria for less than 6 months) Somatic symptom disorder (provisional, met criteria for less than 6 months) r/o dependent personality disorder Assessment: Transferred back from medical floor after treatment for DVTConstance Toney is a 59 year old female who presents for further evaluation and treatment of for adjustment disorder with mixed anxiety and depressed mood, panic attacks, functional neurologic disorder acute, somatic symptom disorder (provisional). She presents in state of mental decompensation in the context of psychosocial stressors including losing her job, her mother becoming hospitalized, financial stress, conflict with being able to enact her zoroastrian beliefs. She is no longer able to care for herself, including feed herself has lost up to 40 pounds since onset of stressors end of August/beginning of September 2024. She has no psychiatric history prior to August 2024. Symptoms appear to directly correlate in their onset with psychosocial stressors. Anxiety has become significantly heightened, which appears to be the hardwick contributing factor to her inability to function at her normal baseline. Her sleep has been chronically poor but has since worsened. She was admitted to the hospital medical for dizziness/concerns for syncope on. There appears to be contributing organic medical causes at this time, the degree of which these are contributing to her inability to care for herself and psychiatric symptoms are unclear. She continues to meet criteria for functional neurologic disorder as well as provisionally for somatic symptom disorder as the majority of her thought content, anxiety is directed towards the distress around her somatic symptoms. 01/08/25: Calmer and less preoccupied on interview, rigid thought process still focused on basic somatic concerns, mood remains depressed. Ready for discharge after fully transitioning out of using wheelchair while on the unit. Safety risk: low risk of imminent self-harm, low risk of externalized violent behaviors Treatment Plan: Will continue mirtazapine to address, anxiety, depressive symptoms, sleep, and stimulate appetite. Will discontinue aripiprazole and start risperidone to further address the severity of her rigid thought process, mood, anxiety. Will continue slow taper off lorazepam, prescribed to manage short term acute anxiety which inhibits her capacity to complete basic self care and decision making. Will continue to encourage behavioral interventions for relaxation. Safety risk: low risk of imminent self-harm, low risk of externalized violent behaviors Continue risperidone 0.5 mg po BID Continue mirtazapine 30 mg po qhs for anxiety/sleep/depression and stimulate appetite. Follow up with PT- Continue Q15 min checks Continue Groups/Milieu Engagement Care coordination with -- Meeting at 11 am on Wednesday Discharge: TO HOME Medications Sent to [facility] --Next week meeting with Medical then can attain [facility] worker once her insurance applies Spent approximately 30 minutes reviewing records and test results, assessing and treatment planning, completing care coordination and documenting the encounter. Discussed risks, including possible adverse effects, and benefits of treatment recommendations including no treatment. Voice recognition software may have been used to dictate this note. There may be errors due to use of such software. Reporting of serious errors is appreciated. Antibiotic Ordered?: No Objective Vitals Vital Signs Date Time Temp Pulse Resp B/P (MAP) Pulse Ox O2 Delivery O2 Flow Rate FiO2 01/08/25 07:10 16 98 Room Air 01/08/25 07:01 91 01/08/25 06:52 156/78 (104) 01/07/25 20:00 96.8 Lab Results: 01/06/25 1152 01/06/25 1152 Problem\\Assessment\\Plan Problems/Diagnosis: (1) Functional neurological symptom disorder with mixed symptoms CODING VISIT-PSYCHIATRY Date of Service: Jan 08, 2025 Billing Provider: RACQUEL PRERY DNP Psych Common Visit Codes: [id number] INP/OBS CARE(Low), [id number] INP/OBS CARE(Mod) RACQUEL PERRY DNP Jan 08, 2025 16:12
--- NOTE | 2025-01-08 17:07 | PROGRESS NOTE- Residence ---
Progress Note - Resident Providers to CC Resident Creating Document: LISANDRO BEST, NICKIE ~ Antibiotic Timeout Antibiotic Ordered?: No Subjective Patient seen and examined at the bedside today. He is resting comfortably and denied any new concerns or complaints. No acute overnight events were reported. Objective Vital Signs Date Time Temp Pulse Resp B/P (MAP) Pulse Ox O2 Delivery O2 Flow Rate FiO2 01/08/25 07:10 16 98 Room Air 01/08/25 07:01 91 01/08/25 06:52 156/78 (104) 01/07/25 20:00 96.8 Result Diagram: 01/06/25 1152 01/06/25 1152 Awake , alert, and oriented x4, resting comfortably in the bed, in no acute distress HEENT: Atraumatic, normocephalic, EOMI, anicteric sclera ; pink conjunctiva Neck: Trachea midline. Supple, full range of motion, no JVD Cardiac: Regular rhythm, regular rate with no murmurs all over the precordium. Respiratory: Equal breath sounds bilaterally, no tachypnea, no wheezing ,rub or rales, Chest wall is symmetric and without deformity. Gastrointestinal: Abdomen symmetric, non-distended, soft, non-tender, normal bowel sounds x4 quadrant, normoactive, no hepatosplenomegaly Musculoskeletal: No pedal edema, no cyanosis Neurological: Speech is clear, alert, and oriented x 4. No focal neurological deficits. Skin: Warm and dry Assessment Assessment 59-year-old female patient admitted to mental health unit due to anxiety and major depressive disorder. Plan Plan Anxiety Major depressive disorder Functional neurological symptom disorder with mixed symptoms Continue management as per psychiatric team DVT left leg: On Eliquis 5 mg b.i.d. Hyperlipidemia: Continue atorvastatin 20 mg Hypertension: Blood pressure is stable Continue losartan 50 mg Hypothyroidism: Continue levothyroxine 175 mcg GERD: Protonix 40 mg daily. Disposition: No acute medical problems. In the hospitalist team we will continue to follow the patient during the course of her hospitalization. Lisandro Best MD Internal Medicine Resident, PGY-3 Date of Service: Jan 08, 2025 Billing Provider: SHENA CAMEJO MD, SURYA PRATIK, NICKIE Jan 08, 2025 17:07
[2025-01-08 19:00] VITALS: RESP 18; O2SAT 97
[2025-01-08 20:00] VITALS: BP 124/76; PULSE 98; RESP 18; TEMP 97.8; O2SAT 97
[2025-01-08 21:35] VITALS: BP 124/76; PULSE 98; RESP 18; TEMP 97.8; O2SAT 97
[2025-01-09 07:26] VITALS: BP 161/79; PULSE 95; RESP 17; TEMP 97.9; O2SAT 98
[2025-01-09 08:16] VITALS: RESP 17; O2SAT 96
--- NOTE | 2025-01-09 17:37 | PROGRESS NOTE ---
Progress Note Dictate Providers to CC ~ Progress Note: Admission date: 02/26/24 Status: VOL HPI: Per consultation by this provider on 12/17/24: Admitted to psychiatric unit on 12/20/24 after being hospitalized for evaluation of vertigo and hypokalemia. Full medical work up completed to rule out BPPV, posterior cerebral circulation stroke, Meniere's disease, vestibular schwannoma. for Consulted requested in the context that's psychiatric symptoms, including depression is a contributing factor to inability to eat failure to thrive, 40 pound weight loss in the past few months. Her brother reported changing behavior behaviors, including more irritable, compared to normal in the past few months. Per Brother: Brother thinks she is having nervous breakdown to "protect herself from what's going on". Per brother her thoughts have been scattered, and she is distracted easily, brother reports she has been very preoccupied with worries. Most days her brother would call and talk to her since end of August- september she wouldn't hve eaten at all during the day. Per brother she has no history of confusion, arguing, anxiety. Reports she will purposefully stay awake and get about 4 hours a day, because she likes to stay up late. States this has been her pattern "for as long as I can remember". Her baseline personality is trouble completing tasks because she will obsess about, "everything will take a long time". She has dread, guilt, anxiety, will be emotionally stuck- about not being able to tithe with the loss of her job. Her cousin came yesterday 12/16/24 and talked to her for over an hour about this issue. Brother states she was scared to drive to the grocery store, afraid to drive. Brother states she spent over an hour cleaning a taylor. Per patient: Patient shares she became more upset when her hospitalist was asking her questions, developed left sided rib and chest pain, she shares that her decision making is "I don't know". She relates this changed when she started "falling backwards" at her home, and after that she reflects she was having trouble with her balance, she had to be careful about bending over because it would "do something to my head". Notices the most issues when she was lay down flat in the bed- states it would feel like her head was moving inside. States she was at her current work for almost 19 years and then she was fired on September 18- in the context of "poor job performance" although when she was let go the manager assurance told her she had a bad review. Then her mother was hospitalized (is age 83), states this was very stressful she has been a main caregiver for her mother. She has lived with her parents her whole life. Her shift in her ability to function occurred after her mother was hospitalized. She states she ahs been worried about "Everything" "no job, filling out unemployment paperwork". Appetite decreased since she lost her job and her mother was hospitalized. She states she thinks she was ok when she was able to tithe- (states she is very jain, raised in the alevism), states she became financially strained with the loss of her job, her brother provided some financial support - because they cant afford property tax. She is upset because there was money and she didn't pay the tithe0 would she identifies as "sin" and being a thief. She states that "everything just fell apart all at once". Endorses she has lost confidence. Significant fear that if she didn't wake up she would be in Hell. Alert and Oriented X4, appropriate memory recall, attention intact States at home she would spend hours stating "I don't know what to do" unable to take action, and her mother would respond Admitted to psychiatric unit from 12/20- for functional neurologic disorder and somatic symptom disorder, transferred back to medical unit Psychiatric History: Age of initial treatment: no hx of mental health Outpatient: no hx Inpatient: no hx Historical Diagnoses (w/year): none Hx of suicide attempts: denies, denies hx of suicide Hx of self-harm: denies Hx of violence: denies Legal hx: denies Historical Psych Medications: denies Substances use history: Utox positive for benzodiazepines (was administered valium in the emergency department) no hx of substance use Social history: Lost her job at [employer] at end of August and since has been feeling sad, has had a sudden decline in PO intake, including food and water. Brother is concerned that she has become mentally shut down. For the reports concerns for new behaviors including becoming argumentative, uncooperative and losing her decision-making capacity. Zoroastrian, "I've been raised in alevism my whole life". Today on Assessment: Panic attack this morning, fearful about discharging, brother doesnt want her to go home if she can't walk, PT will come evaluate her in the context that she is fully able to walk and she perceives her self as in able. Psychiatric Medications: Risperidone Mirtazapine Side Effects: denies No evidence of TD, EPS AIMs: 0 Review of Psychiatric Symptoms: Mood: anxious, endorses helplessness. Still feels very scared. Suicide/self-harm: denies Sleep: waking up in the night due to concerns of bowl/bladder Appetite: still limited, but is still only 30% on average- fearfulness around eating, disturbed that the "cheese seems to grow" when she is chewing it. Feels good about drinking milk. Energy: tired r/t walking up and down the halls Anxiety: still significant worry about her future, finances, physical health, driving, (generalized anxiety). Irritability: endorses Homicidal/Anger: denies Hallucinations/Paranoia: denies Trauma symptoms: denies Symptoms related to substance withdrawal: denies Mental Status Evaluation General Appearance: hospital scrubs, short florentino hair, glasses, malodorous Eye contact: intermittent Demeanor: uncertain, anxious Orientation: to person, place, time, situation Speech: stuttering, hesitant Psychomotor Activity: within normal range Abnormal Body Movements: none observed Mood: uneasy Affect: constricted Suicidality: denies suicidal ideation Homicidally: denies Thought content: consistent with social norms Thought process: circumstantial Thought perceptions: no perceptual disorder noted Memory: appears intact Attention: appear attentive Insight: fair Judgment: fair - Current Medical Problems: r/o encephalopathy Dizziness/Near syncope- etiology unclear MRI normal no evidence of acute intracranial abnormality stroke ruled out EEG results 12/16/23: excess beta in otherwise normal background- nonspecific finding, but maybe seen in the setting of benzodiazepine or barbituate use 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 Hypothyroidism- taking levothyroxine Trouble hearing bilaterally DVT- 12/23-12/26 (treated on medical floor- on Eliquis) Cardiac HX: hypertension, LD elevated TBI Hx: 1982 - reports there have been no long lasting effects Seizure Hx: denies CHRISTINA Hx: denies Diagnoses Adjustment disorder with mixed anxiety and depressed mood Panic attacks Functional Neurological Disorder acute (met criteria for less than 6 months) Somatic symptom disorder (provisional, met criteria for less than 6 months) r/o dependent personality disorder Assessment: Transferred back from medical floor after treatment for DVTConstance Toney is a 59 year old female who presents for further evaluation and treatment of for adjustment disorder with mixed anxiety and depressed mood, panic attacks, functional neurologic disorder acute, somatic symptom disorder (provisional). She presents in state of mental decompensation in the context of psychosocial stressors including losing her job, her mother becoming hospitalized, financial stress, conflict with being able to enact her jain beliefs. She is no longer able to care for herself, including feed herself has lost up to 40 pounds since onset of stressors end of August/beginning of September 2024. She has no psychiatric history prior to August 2024. Symptoms appear to directly correlate in their onset with psychosocial stressors. Anxiety has become significantly heightened, which appears to be the hardwick contributing factor to her inability to function at her normal baseline. Her sleep has been chronically poor but has since worsened. She was admitted to the hospital medical for dizziness/concerns for syncope on. There appears to be contributing organic medical causes at this time, the degree of which these are contributing to her inability to care for herself and psychiatric symptoms are unclear. She continues to meet criteria for functional neurologic disorder as well as provisionally for somatic symptom disorder as the majority of her thought content, anxiety is directed towards the distress around her somatic symptoms. 01/09/25: Distressed by plan to removed access to wheel chair, this provider removed wheel chair to promote independence before discharge. Rigid thought process still focused on basic somatic concerns, mood remains depressed. Safety risk: low risk of imminent self-harm, low risk of externalized violent behaviors Treatment Plan: Will continue mirtazapine to address, anxiety, depressive symptoms, sleep, and stimulate appetite. Will discontinue aripiprazole and start risperidone to further address the severity of her rigid thought process, mood, anxiety. Will continue slow taper off lorazepam, prescribed to manage short term acute anxiety which inhibits her capacity to complete basic self care and decision making. Will continue to encourage behavioral interventions for relaxation. Safety risk: low risk of imminent self-harm, low risk of externalized violent behaviors Continue risperidone 0.5 mg po BID Continue mirtazapine 30 mg po qhs for anxiety/sleep/depression and stimulate appetite. Follow up with PT- Continue Q15 min checks Continue Groups/Milieu Engagement Care coordination with Brother-- Meeting at 11 am on Wednesday Discharge: Ready for discharge after fully transitioning out of using wheelchair while on the unit. TO HOME Medications Sent to [facility] then can attain [facility] worker once her insurance applies Spent approximately 30 minutes reviewing records and test results, assessing and treatment planning, completing care coordination and documenting the encounter. Discussed risks, including possible adverse effects, and benefits of treatment recommendations including no treatment. Voice recognition software may have been used to dictate this note. There may be errors due to use of such software. Reporting of serious errors is appreciated. Antibiotic Ordered?: No Objective Vitals Vital Signs Date Time Temp Pulse Resp B/P (MAP) Pulse Ox O2 Delivery O2 Flow Rate FiO2 01/09/25 08:16 17 96 Room Air 01/09/25 08:11 95 01/09/25 07:26 97.9 161/79 (106) Lab Results: 01/06/25 1152 01/06/25 1152 Problem\\Assessment\\Plan Problems/Diagnosis: (1) Functional neurological symptom disorder with mixed symptoms CODING VISIT-PSYCHIATRY Date of Service: Jan 09, 2025 Billing Provider: RACQUEL PERRY DNP Psych Common Visit Codes: [id number] INP/OBS CARE(Low) RACQUEL PERRY DNP Jan 09, 2025 17:36
[2025-01-09 19:00] VITALS: RESP 18; O2SAT 98
[2025-01-09 20:00] VITALS: BP 142/77; PULSE 96; RESP 18; TEMP 97.2; O2SAT 98
[2025-01-10 07:30] VITALS: BP 149/80; PULSE 91; RESP 16; TEMP 97.8; O2SAT 97
[2025-01-10 07:40] VITALS: RESP 16; O2SAT 97
--- NOTE | 2025-01-10 14:14 | PROGRESS NOTE ---
Progress Note Dictate Providers to CC ~ Progress Note: Admission date: 02/26/24 Status: VOL HPI: Per consultation by this provider on 12/17/24: Admitted to psychiatric unit on 12/20/24 after being hospitalized for evaluation of vertigo and hypokalemia. Full medical work up completed to rule out BPPV, posterior cerebral circulation stroke, Meniere's disease, vestibular schwannoma. for Consulted requested in the context that's psychiatric symptoms, including depression is a contributing factor to inability to eat failure to thrive, 40 pound weight loss in the past few months. Her brother reported changing behavior behaviors, including more irritable, compared to normal in the past few months. Per Brother: Brother thinks she is having nervous breakdown to "protect herself from what's going on". Per brother her thoughts have been scattered, and she is distracted easily, brother reports she has been very preoccupied with worries. Most days her brother would call and talk to her since end of August- september she wouldn't hve eaten at all during the day. Per brother she has no history of confusion, arguing, anxiety. Reports she will purposefully stay awake and get about 4 hours a day, because she likes to stay up late. States this has been her pattern "for as long as I can remember". Her baseline personality is trouble completing tasks because she will obsess about, "everything will take a long time". She has dread, guilt, anxiety, will be emotionally stuck- about not being able to tithe with the loss of her job. Her cousin came yesterday 12/16/24 and talked to her for over an hour about this issue. Brother states she was scared to drive to the grocery store, afraid to drive. Brother states she spent over an hour cleaning a taylor. Per patient: Patient shares she became more upset when her hospitalist was asking her questions, developed left sided rib and chest pain, she shares that her decision making is "I don't know". She relates this changed when she started "falling backwards" at her home, and after that she reflects she was having trouble with her balance, she had to be careful about bending over because it would "do something to my head". Notices the most issues when she was lay down flat in the bed- states it would feel like her head was moving inside. States she was at her current work for almost 19 years and then she was fired on September 18- in the context of "poor job performance" although when she was let go the barber or beauty shop manager told her she had a bad review. Then her mother was hospitalized (is age 83), states this was very stressful she has been a main caregiver for her mother. She has lived with her parents her whole life. Her shift in her ability to function occurred after her mother was hospitalized. She states she ahs been worried about "Everything" "no job, filling out unemployment paperwork". Appetite decreased since she lost her job and her mother was hospitalized. She states she thinks she was ok when she was able to tithe- (states she is very christian, raised in the jainism), states she became financially strained with the loss of her job, her brother provided some financial support - because they cant afford property tax. She is upset because there was money and she didn't pay the tithe0 would she identifies as "sin" and being a thief. She states that "everything just fell apart all at once". Endorses she has lost confidence. Significant fear that if she didn't wake up she would be in Hell. Alert and Oriented X4, appropriate memory recall, attention intact States at home she would spend hours stating "I don't know what to do" unable to take action, and her mother would respond Admitted to psychiatric unit from 12/20- for functional neurologic disorder and somatic symptom disorder, transferred back to medical unit Psychiatric History: Age of initial treatment: no hx of mental health Outpatient: no hx Inpatient: no hx Historical Diagnoses (w/year): none Hx of suicide attempts: denies, denies hx of suicide Hx of self-harm: denies Hx of violence: denies Legal hx: denies Historical Psych Medications: denies Substances use history: Utox positive for benzodiazepines (was administered valium in the emergency department) no hx of substance use Social history: Lost her job at [employer] at end of August and since has been feeling sad, has had a sudden decline in PO intake, including food and water. Brother is concerned that she has become mentally shut down. For the reports concerns for new behaviors including becoming argumentative, uncooperative and losing her decision-making capacity. Orthodoxy, "I've been raised in jainism my whole life". Today on Assessment: Still very fearful about discharging, distressed about sneezing and experiencing some incontinence of bladder. Has been ambulating independently without a wheelchair but states she is not happy about it. Psychiatric Medications: Risperidone Mirtazapine Side Effects: denies No evidence of TD, EPS AIMs: 0 Review of Psychiatric Symptoms: Mood: anxious, endorses helplessness. Still feels very scared. Suicide/self-harm: denies Sleep: 9 hours, waking up in the night due to concerns of bowl/bladder Appetite: still limited, but is still only 30% on average- fearfulness around eating, feels good about drinking milk. Energy: tired r/t walking up and down the halls Anxiety: still significant worry about her future, finances, physical health, driving, (generalized anxiety). Irritability: endorses Homicidal/Anger: denies Hallucinations/Paranoia: denies Trauma symptoms: denies Symptoms related to substance withdrawal: denies Mental Status Evaluation General Appearance: hospital scrubs, short florentino hair, glasses, malodorous Eye contact: intermittent Demeanor: uncertain, anxious Orientation: to person, place, time, situation Speech: stuttering, hesitant Psychomotor Activity: within normal range Abnormal Body Movements: none observed Mood: uneasy Affect: constricted Suicidality: denies suicidal ideation Homicidally: denies Thought content: consistent with social norms Thought process: circumstantial Thought perceptions: no perceptual disorder noted Memory: appears intact Attention: appear attentive Insight: fair Judgment: fair - Current Medical Problems: r/o encephalopathy Dizziness/Near syncope- etiology unclear MRI normal no evidence of acute intracranial abnormality stroke ruled out EEG results 12/16/23: excess beta in otherwise normal background- nonspecific finding, but maybe seen in the setting of benzodiazepine or barbituate use 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 Hypothyroidism- taking levothyroxine Trouble hearing bilaterally DVT- 12/23-12/26 (treated on medical floor- on Eliquis) Cardiac HX: hypertension, LD elevated TBI Hx: 1981 - reports there have been no long lasting effects Seizure Hx: denies CHRISTINA Hx: denies Diagnoses Adjustment disorder with mixed anxiety and depressed mood Panic attacks Functional Neurological Disorder acute (met criteria for less than 6 months) Somatic symptom disorder (provisional, met criteria for less than 6 months) r/o dependent personality disorder Assessment: Transferred back from medical floor after treatment for DVTConstance Toney is a 59 year old female who presents for further evaluation and treatment of for adjustment disorder with mixed anxiety and depressed mood, panic attacks, functional neurologic disorder acute, somatic symptom disorder (provisional). She presents in state of mental decompensation in the context of psychosocial stressors including losing her job, her mother becoming hospitalized, financial stress, conflict with being able to enact her christian beliefs. She is no longer able to care for herself, including feed herself has lost up to 40 pounds since onset of stressors end of August/beginning of September 2024. She has no psychiatric history prior to August 2024. Symptoms appear to directly correlate in their onset with psychosocial stressors. Anxiety has become significantly heightened, which appears to be the hardwick contributing factor to her inability to function at her normal baseline. Her sleep has been chronically poor but has since worsened. She was admitted to the [facility] medical for dizziness/concerns for syncope on. There appears to be contributing organic medical causes at this time, the degree of which these are contributing to her inability to care for herself and psychiatric symptoms are unclear. She continues to meet criteria for functional neurologic disorder as well as provisionally for somatic symptom disorder as the majority of her thought content, anxiety is directed towards the distress around her somatic symptoms. 01/10/25: Improved ability to walk independently. Rigid thought process still focused on basic somatic concerns, mood remains depressed. Safety risk: low risk of imminent self-harm, low risk of externalized violent behaviors Treatment Plan: Will continue mirtazapine to address, anxiety, depressive symptoms, sleep, and stimulate appetite. Will discontinue aripiprazole and start risperidone to further address the severity of her rigid thought process, mood, anxiety. Will continue slow taper off lorazepam, prescribed to manage short term acute anxiety which inhibits her capacity to complete basic self care and decision making. Will continue to encourage behavioral interventions for relaxation. Safety risk: low risk of imminent self-harm, low risk of externalized violent behaviors Plan: Continue risperidone 0.5 mg po BID Continue mirtazapine 30 mg po qhs for anxiety/sleep/depression and stimulate appetite. Follow up with PT- Continue Q15 min checks Continue Groups/Milieu Engagement Discharge: Ready for discharge after fully transitioning out of using wheelchair while on the unit. TO HOME Medications provided by [facility] then can attain SS worker once her insurance applies Spent approximately 30 minutes reviewing records and test results, assessing and treatment planning, completing care coordination and documenting the encounter. Discussed risks, including possible adverse effects, and benefits of treatment recommendations including no treatment. Voice recognition software may have been used to dictate this note. There may be errors due to use of such software. Reporting of serious errors is appreciated. Antibiotic Ordered?: No Objective Vitals Vital Signs Date Time Temp Pulse Resp B/P (MAP) Pulse Ox O2 Delivery O2 Flow Rate FiO2 01/10/25 08:44 91 01/10/25 07:40 16 97 Room Air 01/10/25 07:30 97.8 149/80 (103) Lab Results: 01/06/25 1152 01/06/25 1152 Problem\\Assessment\\Plan Problems/Diagnosis: (1) Functional neurological symptom disorder with mixed symptoms CODING VISIT-PSYCHIATRY Date of Service: Jan 10, 2025 Billing Provider: RACQUEL PERRY DNP Psych Common Visit Codes: [id number] INP/OBS CARE(Mod) RACQUEL PERRY DNP Jan 10, 2025 14:14
--- NOTE | 2025-01-10 15:40 | PROGRESS NOTE ---
Daily Progress Note Providers to CC ~ Antibiotic Timeout Antibiotic Ordered?: No Subjective This is the hospitalist progress note on patients hospitalized at [facility] psychiatric rose/ [facility]. The patient has no acute medical complaints or concerns and none were voiced by nursing staff. The patient was ambulating barefoot around the mental health rose. Did discuss this with the patient she informs me that the socks do not fit her feet due to pedal edema. Nursing staff is going to look into possible foot where options for the patient. Objective Vital Signs Date Time Temp Pulse Resp B/P (MAP) Pulse Ox O2 Delivery O2 Flow Rate FiO2 01/10/25 08:44 91 01/10/25 07:40 16 97 Room Air 01/10/25 07:30 97.8 149/80 (103) Result Diagram: 01/06/25 1152 01/06/25 1152 Gen. No acute distress alert and oriented Lungs clear to ascultation bilaterally, no wheezes rales or rhonchi appreciated Heart normal sinus rhythm no murmurs rubs or clicks noted Abdomen soft nontender bowel sounds are normoactive Lower extremities no clubbing cyanosis, appreciated bilaterally, mild nonpitting edema appreciated on the right, moderate nonpitting edema appreciated on the left greatest dorsal foot Problem\Assessment\Plan 59 years old female admitted at [facility] for anxiety and depression as well as panic attacks. # anxiety/depression/panic attacks: Continue treat per psych recommendations. # acute DVT left leg: Continue Eliquis #hyperlipidemia: Continue atorvastatin # hypertension: Continue losartan #hypothyroidism: Continue levothyroxine # GERD: Continue PPI The hospitalist service will continue to follow the patient while hospitalized at [facility] Date of Service: Jan 10, 2025 Billing Provider: CALLY GONZALEZ DO Common Visit Codes: [id number] INP/OBS CARE(LOW) CALLY GONZALEZ DO Jan 10, 2025 15:40
[2025-01-10 19:00] VITALS: RESP 20; O2SAT 97
[2025-01-10 20:00] VITALS: BP 131/76; PULSE 104; RESP 20; TEMP 97.5; O2SAT 97
[2025-01-11 07:07] VITALS: RESP 16; O2SAT 97
[2025-01-11 07:23] VITALS: BP 152/87; PULSE 88; RESP 18; TEMP 97.5; O2SAT 98
--- NOTE | 2025-01-11 18:17 | PROGRESS NOTE ---
Progress Note Dictate Providers to CC ~ Progress Note: Admission date: 02/26/24 Status: VOL HPI: Per consultation by this provider on 12/17/24: Admitted to psychiatric unit on 12/20/24 after being hospitalized for evaluation of vertigo and hypokalemia. Full medical work up completed to rule out BPPV, posterior cerebral circulation stroke, Meniere's disease, vestibular schwannoma. for Consulted requested in the context that's psychiatric symptoms, including depression is a contributing factor to inability to eat failure to thrive, 40 pound weight loss in the past few months. Her brother reported changing behavior behaviors, including more irritable, compared to normal in the past few months. Per Brother: Brother thinks she is having nervous breakdown to "protect herself from what's going on". Per brother her thoughts have been scattered, and she is distracted easily, brother reports she has been very preoccupied with worries. Most days her brother would call and talk to her since end of August- september she wouldn't hve eaten at all during the day. Per brother she has no history of confusion, arguing, anxiety. Reports she will purposefully stay awake and get about 4 hours a day, because she likes to stay up late. States this has been her pattern "for as long as I can remember". Her baseline personality is trouble completing tasks because she will obsess about, "everything will take a long time". She has dread, guilt, anxiety, will be emotionally stuck- about not being able to tithe with the loss of her job. Her cousin came yesterday 12/16/24 and talked to her for over an hour about this issue. Brother states she was scared to drive to the grocery store, afraid to drive. Brother states she spent over an hour cleaning a taylor. Per patient: Patient shares she became more upset when her hospitalist was asking her questions, developed left sided rib and chest pain, she shares that her decision making is "I don't know". She relates this changed when she started "falling backwards" at her home, and after that she reflects she was having trouble with her balance, she had to be careful about bending over because it would "do something to my head". Notices the most issues when she was lay down flat in the bed- states it would feel like her head was moving inside. States she was at her current work for almost 19 years and then she was fired on September 18- in the context of "poor job performance" although when she was let go the manager primary told her she had a bad review. Then her mother was hospitalized (is age 83), states this was very stressful she has been a main caregiver for her mother. She has lived with her parents her whole life. Her shift in her ability to function occurred after her mother was hospitalized. She states she ahs been worried about "Everything" "no job, filling out unemployment paperwork". Appetite decreased since she lost her job and her mother was hospitalized. She states she thinks she was ok when she was able to tithe- (states she is very congregation, raised in the [place]ish), states she became financially strained with the loss of her job, her brother provided some financial support - because they cant afford property tax. She is upset because there was money and she didn't pay the tithe0 would she identifies as "sin" and being a thief. She states that "everything just fell apart all at once". Endorses she has lost confidence. Sign ificant fear that if she didn't wake up she would be in [place]. Alert and Oriented X4, appropriate memory recall, attention intact States at home she would spend hours stating "I don't know what to do" unable to take action, and her mother would respond Admitted to psychiatric unit from 12/20- for functional neurologic disorder and somatic symptom disorder, transferred back to medical unit Psychiatric History: Age of initial treatment: no hx of mental health Outpatient: no hx Inpatient: no hx Historical Diagnoses (w/year): none Hx of suicide attempts: denies, denies hx of suicide Hx of self-harm: denies Hx of violence: denies Legal hx: denies Historical Psych Medications: denies Substances use history: Utox positive for benzodiazepines (was administered valium in the emergency department) no hx of substance use Social history: Lost her job at [employer] at end of August and since has been feeling sad, has had a sudden decline in PO intake, including food and water. Brother is concerned that she has become mentally shut down. For the reports concerns for new behaviors including becoming argumentative, uncooperative and losing her decision-making capacity. Worship, "I've been raised in amish my whole life". Today on Assessment: Still very fearful about discharging, scared "no matter when", scared about being able to care for self at home. Psychiatric Medications: Risperidone Mirtazapine Side Effects: denies No evidence of TD, EPS AIMs: 0 Review of Psychiatric Symptoms: Mood: anxious, endorses helplessness. Still feels very scared. Suicide/self-harm: denies Sleep: 9 hours, waking up in the night due to concerns of bowl/bladder Appetite: still limited, but is still only 30% on average- fearfulness around eating, feels good about drinking milk. Energy: tired r/t walking up and down the halls Anxiety: still significant worry about her future, finances, physical health, driving, (generalized anxiety). Irritability: endorses Homicidal/Anger: denies Hallucinations/Paranoia: denies Trauma symptoms: denies Symptoms related to substance withdrawal: denies Mental Status Evaluation General Appearance: hospital scrubs, short florentino hair, glasses, malodorous Eye contact: intermittent Demeanor: uncertain, anxious Orientation: to person, place, time, situation Speech: stuttering, hesitant Psychomotor Activity: within normal range Abnormal Body Movements: none observed Mood: uneasy Affect: constricted Suicidality: denies suicidal ideation Homicidally: denies Thought content: consistent with social norms Thought process: circumstantial Thought perceptions: no perceptual disorder noted Memory: appears intact Attention: appear attentive Insight: fair Judgment: fair - Current Medical Problems: r/o encephalopathy Dizziness/Near syncope- etiology unclear MRI normal no evidence of acute intracranial abnormality stroke ruled out EEG results 12/16/23: excess beta in otherwise normal background- nonspecific finding, but maybe seen in the setting of benzodiazepine or barbituate use 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 Hypothyroidism- taking levothyroxine Trouble hearing bilaterally DVT- 12/23-12/26 (treated on medical floor- on Eliquis) Cardiac HX: hypertension, LD elevated TBI Hx: 1981 - reports there have been no long lasting effects Seizure Hx: denies CHRISTINA Hx: denies Diagnoses Adjustment disorder with mixed anxiety and depressed mood Panic attacks Functional Neurological Disorder acute (met criteria for less than 6 months) Somatic symptom disorder (provisional, met criteria for less than 6 months) r/o dependent personality disorder Assessment: Transferred back from medical floor after treatment for DVTConstance Toney is a 59 year old female who presents for further evaluation and treatment of for adjustment disorder with mixed anxiety and depressed mood, panic attacks, functional neurologic disorder acute, somatic symptom disorder (provisional). She presents in state of mental decompensation in the context of psychosocial stressors including losing her job, her mother becoming hospitalized, financial stress, conflict with being able to enact her congregation beliefs. She is no longer able to care for herself, including feed herself has lost up to 40 pounds since onset of stressors end of August/beginning of September 2024. She has no psychiatric history prior to August 2024. Symptoms appear to directly correlate in their onset with psychosocial stressors. Anxiety has become significantly heightened, which appears to be the hardwick contributing factor to her inability to function at her normal baseline. Her sleep has been chronically poor but has since worsened. She was admitted to the [facility] for dizziness/concerns for syncope on. There appears to be contributing organic medical causes at this time, the degree of which these are contributing to her inability to care for herself and psychiatric symptoms are unclear. She continues to meet criteria for functional neurologic disorder as well as provisionally for somatic symptom disorder as the majority of her thought content, anxiety is directed towards the distress around her somatic symptoms. 01/11: improved independence without wheel chair, anxiety decreased, improved capacity to meet her own needs including basic ADLs, stable for discharge. Safety risk: low risk of imminent self-harm, low risk of externalized violent behaviors Treatment Plan: Will continue mirtazapine to address, anxiety, depressive symptoms, sleep, and stimulate appetite. Will discontinue aripiprazole and start risperidone to further address the severity of her rigid thought process, mood, anxiety. Will continue slow taper off lorazepam, prescribed to manage short term acute anxiety which inhibits her capacity to complete basic self care and decision making. Will continue to encourage behavioral interventions for relaxation. Safety risk: low risk of imminent self-harm, low risk of externalized violent behaviors Plan: Continue risperidone 0.5 mg po BID Continue mirtazapine 30 mg po qhs for anxiety/sleep/depression and stimulate appetite. Follow up with PT- Continue Q15 min checks Continue Groups/Milieu Engagement Discharge: Ready for discharge after fully transitioning out of using wheelchair while on the unit. TO HOME Medications provided by [facility] then can attain [facility]HSS worker once her insurance applies Spent approximately 30 minutes reviewing records and test results, assessing and treatment planning, completing care coordination and documenting the encounter. Discussed risks, including possible adverse effects, and benefits of treatment recommendations including no treatment. Voice recognition software may have been used to dictate this note. There may be errors due to use of such software. Reporting of serious errors is appreciated. Antibiotic Ordered?: No Objective Vitals Vital Signs Date Time Temp Pulse Resp B/P (MAP) Pulse Ox O2 Delivery O2 Flow Rate FiO2 01/11/25 07:23 97.5 88 18 152/87 (108) 98 Room Air Problem\\Assessment\\Plan Problems/Diagnosis: (1) Functional neurological symptom disorder with mixed symptoms CODING VISIT-PSYCHIATRY Date of Service: Jan 11, 2025 Billing Provider: RACQUEL PERRY DNP Psych Common Visit Codes: [id number] INP/OBS CARE(Low) RACQUEL PERRY DNP Jan 11, 2025 18:17
[2025-01-11 19:00] VITALS: RESP 18; O2SAT 98
[2025-01-11 20:00] VITALS: BP 150/80; PULSE 80; RESP 18; TEMP 97.6; O2SAT 98
[2025-01-11] MEDS: polyethylene glycol 3350 17gm powd pack PO SCH (20:47)
[2025-01-12] MEDS: MULTIVIT-MIN/FERROUS GLUCONATE 9 MG/15 ML LIQUID PO SCH (08:00)
[2025-01-12 08:18] VITALS: BP 154/83; PULSE 98; RESP 18; TEMP 97.6; O2SAT 98
[2025-01-12 09:48] VITALS: RESP 16; O2SAT 96
--- NOTE | 2025-01-12 15:01 | PROGRESS NOTE- Residence ---
Progress Note - Resident Providers to CC Resident Creating Document: LISANDRO BEST, NICKIE ~ Antibiotic Timeout Antibiotic Ordered?: No Subjective Patient seen and examined at the bedside today. She is resting comfortably and denied any new concerns or complaints. No acute overnight events were reported. Objective Vital Signs Date Time Temp Pulse Resp B/P (MAP) Pulse Ox O2 Delivery O2 Flow Rate FiO2 01/12/25 09:48 16 96 Room Air 01/12/25 08:18 97.6 98 154/83 (106) Awake , alert, and oriented x4, resting comfortably in the bed, in no acute distress HEENT: Atraumatic, normocephalic, EOMI, anicteric sclera ; pink conjunctiva Neck: Trachea midline. Supple, full range of motion, no JVD Cardiac: Regular rhythm, regular rate with no murmurs all over the precordium. Respiratory: Equal breath sounds bilaterally, no tachypnea, no wheezing ,rub or rales, Chest wall is symmetric and without deformity. Gastrointestinal: Abdomen symmetric, non-distended, soft, non-tender, normal bowel sounds x4 quadrant, normoactive, no hepatosplenomegaly Musculoskeletal: No pedal edema, no cyanosis Neurological: Speech is clear, alert, and oriented x 4. No focal neurological deficits. Skin: Warm and dry Assessment Assessment 59-year-old female patient admitted to mental health unit due to anxiety and major depressive disorder. Plan Plan Anxiety Major depressive disorder Functional neurological symptom disorder with mixed symptoms Continue management as per psychiatric team DVT left leg: On Eliquis 5 mg b.i.d. Hyperlipidemia: Continue atorvastatin 20 mg Hypertension: Blood pressure is stable Continue losartan 50 mg Hypothyroidism: Continue levothyroxine 175 mcg GERD: Protonix 40 mg daily. Disposition: Continue medical management. No acute medical problems. In the hospitalist team we will continue to follow the patient during the course of her hospitalization. Lisandro Best MD Internal Medicine Resident, PGY-3 Date of Service: Jan 12, 2025 Billing Provider: SHENA CAMEJO MD, SURYA PRATIK, NICKIE Jan 12, 2025 15:01
[2025-01-12 19:00] VITALS: RESP 16; O2SAT 97
[2025-01-12 19:54] VITALS: BP 144/83; PULSE 102; RESP 16; TEMP 98.9; O2SAT 97
--- NOTE | 2025-01-12 21:00 | PROGRESS NOTE ---
Progress Note Dictate Providers to CC ~ Progress Note: Admission date: 02/26/24 Status: VOL HPI: Per consultation by this provider on 12/17/24: Admitted to psychiatric unit on 12/20/24 after being hospitalized for evaluation of vertigo and hypokalemia. Full medical work up completed to rule out BPPV, posterior cerebral circulation stroke, Meniere's disease, vestibular schwannoma. for Consulted requested in the context that's psychiatric symptoms, including depression is a contributing factor to inability to eat failure to thrive, 40 pound weight loss in the past few months. Her brother reported changing behavior behaviors, including more irritable, compared to normal in the past few months. Per Brother: Brother thinks she is having nervous breakdown to "protect herself from what's going on". Per brother her thoughts have been scattered, and she is distracted easily, brother reports she has been very preoccupied with worries. Most days her brother would call and talk to her since end of August- september she wouldn't hve eaten at all during the day. Per brother she has no history of confusion, arguing, anxiety. Reports she will purposefully stay awake and get about 4 hours a day, because she likes to stay up late. States this has been her pattern "for as long as I can remember". Her baseline personality is trouble completing tasks because she will obsess about, "everything will take a long time". She has dread, guilt, anxiety, will be emotionally stuck- about not being able to tithe with the loss of her job. Her cousin came yesterday 12/16/24 and talked to her for over an hour about this issue. Brother states she was scared to drive to the grocery store, afraid to drive. Brother states she spent over an hour cleaning a taylor. Per patient: Patient shares she became more upset when her hospitalist was asking her questions, developed left sided rib and chest pain, she shares that her decision making is "I don't know". She relates this changed when she started "falling backwards" at her home, and after that she reflects she was having trouble with her balance, she had to be careful about bending over because it would "do something to my head". Notices the most issues when she was lay down flat in the bed- states it would feel like her head was moving inside. States she was at her current work for almost 19 years and then she was fired on September 18- in the context of "poor job performance" although when she was let go the [employer] operations manager told her she had a bad review. Then her mother was hospitalized (is age 83), states this was very stressful she has been a main caregiver for her mother. She has lived with her parents her whole life. Her shift in her ability to function occurred after her mother was hospitalized. She states she ahs been worried about "Everything" "no job, filling out unemployment paperwork". Appetite decreased since she lost her job and her mother was hospitalized. She states she thinks she was ok when she was able to tithe- (states she is very pentecostalism, raised in the jain), states she became financially strained with the loss of her job, her brother provided some financial support - because they cant afford property tax. She is upset because there was money and she didn't pay the tithe0 would she identifies as "sin" and being a thief. She states that "everything just fell apart all at once". Endorses she has lost confidence. Sign ificant fear that if she didn't wake up she would be in Hell. Alert and Oriented X4, appropriate memory recall, attention intact States at home she would spend hours stating "I don't know what to do" unable to take action, and her mother would respond Psychiatric History: Age of initial treatment: no hx of mental health Outpatient: no hx Inpatient: no hx Historical Diagnoses (w/year): none Hx of suicide attempts: denies, denies hx of suicide Hx of self-harm: denies Hx of violence: denies Legal hx: denies Historical Psych Medications: denies Substances use history: Utox positive for benzodiazepines (was administered valium in the emergency department) no hx of substance use Social history: Lost her job at [employer] at end of August and since has been feeling sad, has had a sudden decline in PO intake, including food and water. Brother is concerned that she has become mentally shut down. For the reports concerns for new behaviors including becoming argumentative, uncooperative and losing her decision-making capacity. Rastafari, "I've been raised in jain my whole life". Today on Assessment: Feels "concerned" about taking the medication consistently when she goes home, doesnt feel prepared to go home and take care of herself. Is worried because her brother is working tomorrow and he will not be around to help her. Psychiatric Medications: Risperidone Mirtazapine Side Effects: denies No evidence of TD, EPS AIMs: 0 Review of Psychiatric Symptoms: Mood: anxious, endorses helplessness, Suicide/self-harm: denies Sleep: 9 hours- Appetite: still limited, but is still only 30% on average- fearfulness around eating, feels good about drinking milk. Energy: tired r/t walking up and down the halls Anxiety: still significant worry about her future, finances, physical health, driving, (generalized anxiety). Irritability: endorses Homicidal/Anger: denies Hallucinations/Paranoia: denies Trauma symptoms: denies Symptoms related to substance withdrawal: denies Mental Status Evaluation General Appearance: hospital scrubs, short florentino hair, glasses, malodorous Eye contact: intermittent Demeanor: uncertain, anxious Orientation: to person, place, time, situation Speech: stuttering, hesitant Psychomotor Activity: within normal range Abnormal Body Movements: none observed Mood: uneasy Affect: constricted Suicidality: denies suicidal ideation Homicidally: denies Thought content: consistent with social norms Thought process: circumstantial Thought perceptions: no perceptual disorder noted Memory: appears intact Attention: appear attentive Insight: fair Judgment: fair - Current Medical Problems: r/o encephalopathy Dizziness/Near syncope- etiology unclear MRI normal no evidence of acute intracranial abnormality stroke ruled out EEG results 12/16/23: excess beta in otherwise normal background- nonspecific finding, but maybe seen in the setting of benzodiazepine or barbituate use 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 Hypothyroidism- taking levothyroxine Trouble hearing bilaterally DVT- 12/23-12/26 (treated on medical floor- on [facility]) Cardiac HX: hypertension, LD elevated TBI Hx: 1980 - reports there have been no long lasting effects Seizure Hx: denies CHRISTINA Hx: denies Diagnoses Adjustment disorder with mixed anxiety and depressed mood Panic attacks Functional Neurological Disorder acute (met criteria for less than 6 months) Somatic symptom disorder (provisional, met criteria for less than 6 months) r/o dependent personality disorder Assessment: Transferred back from medical floor after treatment for DVTConstance Toney is a 59 year old female who presents for further evaluation and treatment of for adjustment disorder with mixed anxiety and depressed mood, panic attacks, functional neurologic disorder acute, somatic symptom disorder (provisional). She presents in state of mental decompensation in the context of psychosocial stressors including losing her job, her mother becoming hospitalized, financial stress, conflict with being able to enact her pentecostalism beliefs. She is no longer able to care for herself, including feed herself has lost up to 40 pounds since onset of stressors end of August/beginning of September 2024. She has no psychiatric history prior to August 2024. Symptoms appear to directly correlate in their onset with psychosocial stressors. Anxiety has become significantly heightened, which appears to be the hardwick contributing factor to her inability to function at her normal baseline. Her sleep has been chronically poor but has since worsened. She was admitted to the [facility] for dizziness/concerns for syncope on. There appears to be contributing organic medical causes at this time, the degree of which these are contributing to her inability to care for herself and psychiatric symptoms are unclear. She continues to meet criteria for functional neurologic disorder as well as provisionally for somatic symptom disorder as the majority of her thought content, anxiety is directed towards the distress around her somatic symptoms. 01/12: feels overwhelmed by her concerns r/t caring for herself when she returns home, overall less perseveration, stable for discharge. Safety risk: low risk of imminent self-harm, low risk of externalized violent behaviors Treatment Plan: Will continue mirtazapine to address, anxiety, depressive symptoms, sleep, and stimulate appetite. Will discontinue aripiprazole and start risperidone to further address the severity of her rigid thought process, mood, anxiety. Will continue slow taper off lorazepam, prescribed to manage short term acute anxiety which inhibits her capacity to complete basic self care and decision making. Will continue to encourage behavioral interventions for relaxation. Safety risk: low risk of imminent self-harm, low risk of externalized violent behaviors Plan: Continue risperidone 0.5 mg po BID Continue mirtazapine 30 mg po qhs for anxiety/sleep/depression and stimulate appetite. Follow up with PT- Continue Q15 min checks Continue Groups/Milieu Engagement Discharge: ensure all medications are prescribed-- Ready for discharge after fully transitioning out of using wheelchair while on the unit. TO HOME Medications provided by [facility] then can attain [facility] worker once her insurance applies Spent approximately 30 minutes reviewing records and test results, assessing and treatment planning, completing care coordination and documenting the encounter. Discussed risks, including possible adverse effects, and benefits of treatment recommendations including no treatment. Voice recognition software may have been used to dictate this note. There may be errors due to use of such software. Reporting of serious errors is appreciated. Antibiotic Ordered?: No Objective Vitals Vital Signs Date Time Temp Pulse Resp B/P (MAP) Pulse Ox O2 Delivery O2 Flow Rate FiO2 01/12/25 19:54 98.9 102 16 144/83 (103) 97 Room Air Problem\\Assessment\\Plan Problems/Diagnosis: (1) Functional neurological symptom disorder with mixed symptoms CODING VISIT-PSYCHIATRY Date of Service: Jan 12, 2025 Billing Provider: RACQUEL PERRY DNP Psych Common Visit Codes: [id number] INP/OBS CARE(Low) RACQUEL PERRY DNP Jan 12, 2025 21:00
[2025-01-13 07:00] VITALS: RESP 16; O2SAT 96
[2025-01-13 08:00] VITALS: BP 145/79; PULSE 98; RESP 16; TEMP 98; O2SAT 95
[2025-01-13 08:03] VITALS: BP_SYST 145; PULSE 98
[2025-01-13 08:39] LABS: MEAN PLATELET VOLUME 7.5 FL (7.4-10.4); RED CELL DISTRIBUTION WIDTH 15.9 % (11.5-14.5)
[2025-01-13 09:36] LABS: CREATININE 0.81 MG/DL (0.40-0.90); TOTAL CARBON DIOXIDE 28.9 MMOL/L (24-32); eCRCL 60 ML/MIN; eGFR 72 ML/MIN
[2025-01-13] MEDS ORDERED: LEVO175C3 PO (11:47)
[2025-01-13] MEDS ORDERED: APIX5TAB5 PO (11:47)
[2025-01-13] MEDS ORDERED: MECL-302 PO (17:11)
[2025-01-13] MEDS ORDERED: PANT40TA54 PO (17:12)
[2025-01-13] MEDS ORDERED: LOSA-415 PO (17:13)
--- NOTE | 2025-01-13 20:38 | DISCHARGE SUMMARY ---
Discharge Summary Providers to CC ~ Discharge Summary Admission Diagnosis: Functional Neurologic Disorder Discharge Diagnosis\\Comment: stable Operations\\Procedures: none Consultants: hospitalist Complications: none Condition on DC: Stable 2 or more antipsychotic used: Yes 2/more antipsychotic addressed: Yes Does Patient smoke: No Smoking education given.: No Discharge Summary: Admission date: 02/26/24 Status: VOL HPI: Per consultation by this provider on 12/17/24: Admitted to psychiatric unit on 12/20/24 after being hospitalized for evaluation of vertigo and hypokalemia. Full medical work up completed to rule out BPPV, posterior cerebral circulation stroke, Meniere's disease, vestibular schwannoma. for Consulted requested in the context that's psychiatric symptoms, including depression is a contributing factor to inability to eat failure to thrive, 40 pound weight loss in the past few months. Her brother reported changing behavior behaviors, including more irritable, compared to normal in the past few months. Per Brother: Brother thinks she is having nervous breakdown to "protect herself from what's going on". Per brother her thoughts have been scattered, and she is distracted easily, brother reports she has been very preoccupied with worries. Most days her brother would call and talk to her since end of August- september she wouldn't hve eaten at all during the day. Per brother she has no history of confusion, arguing, anxiety. Reports she will purposefully stay awake and get about 4 hours a day, because she likes to stay up late. States this has been her pattern "for as long as I can remember". Her baseline personality is trouble completing tasks because she will obsess about, "everything will take a long time". She has dread, guilt, anxiety, will be emotionally stuck- about not being able to tithe with the loss of her job. Her cousin came yesterday 12/16/24 and talked to her for over an hour about this issue. Brother states she was scared to drive to the grocery store, afraid to drive. Brother states she spent over an hour cleaning a taylor. Per patient: Patient shares she became more upset when her hospitalist was asking her questions, developed left sided rib and chest pain, she shares that her decision making is "I don't know". She relates this changed when she started "falling backwards" at her home, and after that she reflects she was having trouble with her balance, she had to be careful about bending over because it would "do something to my head". Notices the most issues when she was lay down flat in the bed- states it would feel like her head was moving inside. States she was at her current work for almost 19 years and then she was fired on September 18- in the context of "poor job performance" although when she was let go the programming manager told her she had a bad review. Then her mother was hospitalized (is age 83), states this was very stressful she has been a main caregiver for her mother. She has lived with her parents her whole life. Her shift in her ability to function occurred after her mother was hospitalized. She states she ahs been worried about "Everything" "no job, filling out unemployment paperwork". Appetite decreased since she lost her job and her mother was hospitalized. She states she thinks she was ok when she was able to tithe- (states she is very jewish, raised in the buddhism), states she became financially strained with the loss of her job, her brother provided some financial support - because they cant afford property tax. She is upset because there was money and she didn't pay the tithe0 would she identifies as "sin" and being a thief. She states that "everything just fell apart all at once". Endorses she has lost confidence. Significant fear that if she didn't wake up she would be in Hell. Alert and Oriented X4, appropriate memory recall, attention intact States at home she would spend hours stating "I don't know what to do" unable to take action, and her mother would respond Psychiatric History: Age of initial treatment: no hx of mental health Outpatient: no hx Inpatient: no hx Historical Diagnoses (w/year): none Hx of suicide attempts: denies, denies hx of suicide Hx of self-harm: denies Hx of violence: denies Legal hx: denies Historical Psych Medications: denies Substances use history: Utox positive for benzodiazepines (was administered valium in the emergency department) no hx of substance use Social history: Lost her job at [email or web address] at end of August and since has been feeling sad, has had a sudden decline in PO intake, including food and water. Brother is concerned that she has become mentally shut down. For the reports concerns for new behaviors including becoming argumentative, uncooperative and losing her decision-making capacity. Sikh, "I've been raised in buddhism my whole life". Today on Assessment: Feels "concerned" about taking the medication consistently when she goes home, doesnt feel prepared to go home and take care of herself. Is worried because her brother is working tomorrow and he will not be around to help her. Psychiatric Medications: Risperidone Mirtazapine Side Effects: denies No evidence of TD, EPS AIMs: 0 Review of Psychiatric Symptoms: Mood: anxious, endorses helplessness, Suicide/self-harm: denies Sleep: 9 hours- Appetite: still limited, but is still only 30% on average- fearfulness around eating, feels good about drinking milk. Energy: tired r/t walking up and down the halls Anxiety: still significant worry about her future, finances, physical health, driving, (generalized anxiety). Irritability: endorses Homicidal/Anger: denies Hallucinations/Paranoia: denies Trauma symptoms: denies Symptoms related to substance withdrawal: denies Mental Status Evaluation General Appearance: hospital scrubs, short florentino hair, glasses, malodorous Eye contact: intermittent Demeanor: uncertain, anxious Orientation: to person, place, time, situation Speech: stuttering, hesitant Psychomotor Activity: within normal range Abnormal Body Movements: none observed Mood: uneasy Affect: constricted Suicidality: denies suicidal ideation Homicidally: denies Thought content: consistent with social norms Thought process: circumstantial Thought perceptions: no perceptual disorder noted Memory: appears intact Attention: appear attentive Insight: fair Judgment: fair - Current Medical Problems: r/o encephalopathy Dizziness/Near syncope- etiology unclear MRI normal no evidence of acute intracranial abnormality stroke ruled out EEG results 12/16/23: excess beta in otherwise normal background- nonspecific finding, but maybe seen in the setting of benzodiazepine or barbituate use 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 Hypothyroidism- taking levothyroxine Trouble hearing bilaterally DVT- 12/23-12/26 (treated on medical floor- on [facility]) Cardiac HX: hypertension, LD elevated TBI Hx: 1980 - reports there have been no long lasting effects Seizure Hx: denies CHRISTINA Hx: denies Discharge Diagnoses Adjustment disorder with mixed anxiety and depressed mood Panic attacks Functional Neurological Disorder acute (met criteria for less than 6 months) Somatic symptom disorder (provisional, met criteria for less than 6 months) r/o dependent personality disorder Discharge Assessment: Dwana is a 59 year old female who presents stable for discharge after evaluation and treatment for adjustment disorder with mixed anxiety and depressed mood, panic attacks, functional neurologic disorder acute, somatic symptom disorder (provisional). She presented in state of mental decompensation in the context of psychosocial stressors including losing her job, her mother becoming hospitalized, financial stress, conflict with being able to enact her jewish beliefs. She is no longer able to care for herself, including feed herself has lost up to 40 pounds since onset of stressors end of August/beginning of September 2024. She has no psychiatric history prior to August 2024. Symptoms appear to directly correlate in their onset with psychosocial stressors. Anxiety has become significantly heightened, which appears to be the hardwick contributing factor to her inability to function at her normal baseline. Her sleep has been chronically poor but has since worsened. She was admitted to the hospital medical for dizziness/concerns for syncope on. She continues to meet criteria for functional neurologic disorder as well as provisionally for somatic symptom disorder as the majority of her thought content, anxiety is directed towards the distress around her somatic symptoms. Since admission she made significant improvements in her ability to care for herself including ambulating independently. Anxiety and obsessive thought process have lessened to the extent that she is capable of decision making and implementing action. Appetite has improved significantly. She is stable to continue further treatment in the outpatient setting. Safety risk: low risk of imminent self-harm, low risk of externalized violent behaviors Treatment Plan: Will continue mirtazapine to address, anxiety, depressive symptoms, sleep, and stimulate appetite. Will continue risperidone to further address the severity of her rigid thought process, mood, anxiety. Will continue to encourage behavioral interventions for relaxation. Safety risk: low risk of imminent self-harm, low risk of externalized violent behaviors Discharge Plan: Continue risperidone 0.5 mg po BID Continue mirtazapine 30 mg po qhs for anxiety/sleep/depression and stimulate appetite. Follow up with PT- TO HOME (lives with mother) Medications provided by [facility] In the process of attaining a [facility] worker once her insurance applies Attend scheduled follow ups for outpatient therapy and medication management No Access to firearms. Safety plan established, reviewed, copy sent home (copy in the chart) Spent approximately 30 minutes reviewing records and test results, assessing and treatment planning, completing care coordination and documenting the encounter. Discussed risks, including possible adverse effects, and benefits of treatment recommendations including no treatment. Voice recognition software may have been used to dictate this note. There may be errors due to use of such software. Reporting of serious errors is appreciated. *Problems/Diagnosis: (1) Functional neurological symptom disorder with mixed symptoms Status: Chronic Total Time Spent on D/C: Up to 30 Minutes Counseling Services Smoking & Tobacco Cessation: N/A CODING VISIT-PSYCHIATRY Date of Service: Jan 13, 2025 Billing Provider: RACQUEL PERRY DNP Psych Common Visit Codes: [id number] DISCH DAY <30min RACQUEL PERRY DNP Jan 13, 2025 20:38
== END 2025-01-13 14:02 | disposition home or self-care (01) | DRG 755 ==
LOC: ADULT MH 12:45
PROVIDERS: ADMIT Psychiatry & Neurology Psychiatry; ATTEND Psychiatry & Neurology Psychiatry
PROC: GZHZZZZ Group Psychotherapy (ICD-10-PCS; principal; 2024-12-27)
PROC: GZ51ZZZ Individual Psychotherapy, Behavioral (ICD-10-PCS; 2025-01-07)
DX: F43.23 Adjustment disorder with mixed anxiety and depressed mood (principal); R62.7 Adult failure to thrive; Z79.01 Long term (current) use of anticoagulants; E03.9 Hypothyroidism, unspecified; I10 Essential (primary) hypertension; F32.9 Major depressive disorder, single episode, unspecified; Z68.33 Body mass index [BMI] 33.0-33.9, adult; R63.4 Abnormal weight loss; K21.9 Gastro-esophageal reflux disease without esophagitis; E87.6 Hypokalemia; R29.818 Other symptoms and signs involving the nervous system; D33.3 Benign neoplasm of cranial nerves; F41.0 Panic disorder [episodic paroxysmal anxiety]; R29.90 Unspecified symptoms and signs involving the nervous system; F45.9 Somatoform disorder, unspecified; Z88.1 Allergy status to other antibiotic agents; Z79.899 Other long term (current) drug therapy; Z87.820 Personal history of traumatic brain injury; Z88.0 Allergy status to penicillin
CPT/HCPCS: 36415; 80048; 80061; 83721; 85025; 87081; 93005; A6250; A6258; C2617; Q0177